=== PATIENT | female | born 1980 | race African-American/Black ===

== ENCOUNTER 2018-07-23 14:54 | Inpatient (IN) | payer BC ==
[2018-07-23] MEDS ORDERED: Carboprost Tromethamine 250 MCG/1 ML Amp IM PRN (15:57)
[2018-07-23] MEDS ORDERED: Sodium Chloride 0.9% 2.5 ML Syringe FLUSH PRN (15:57)
[2018-07-23] MEDS ORDERED: Nalbuphine 10 MG/1 ML Vial IVPUSH PRN (15:57)
[2018-07-23] MEDS ORDERED: Misoprostol 200 MCG Tab PO PRN (15:57)
[2018-07-23] MEDS ORDERED: Lidocaine 1% 50 ML MDV INJECT PRN (15:57)
[2018-07-23] MEDS ORDERED: Methylergonovine 0.2 MG/1 ML Amp IM PRN (15:57)
[2018-07-23] MEDS ORDERED: Tranexamic Acid 1,000 MG in Sodium Chloride 0.9% 100 ML IV PRN (15:57)
[2018-07-23] MEDS ORDERED: Sodium Chloride 0.9% 10 ML Syringe FLUSH PRN (15:57)
[2018-07-23] MEDS ORDERED: Water For Irrigation,Sterile 1,000 ML Container IRR PRN (15:57)
[2018-07-23] MEDS ORDERED: Terbutaline 1 MG/ML SDV SUBCUT PRN (15:58)
[2018-07-23] MEDS ORDERED: Oxytocin/0.9 % Sodium Chloride 30 UNIT/500 ML BAG IV SCH ×2 (16:00)
[2018-07-23] MEDS ORDERED: Dextrose 5%-0.9% NaCl 1,000 ML IV SCH (16:15)
[2018-07-23] MEDS: Lactated Ringers 1,000 ML IV SCH (16:48)
[2018-07-24] MEDS: Butorphanol 1 MG/ML SDV IVPUSH PRN ×2 (00:53→08:20)
[2018-07-24] MEDS: Lactated Ringers 1,000 ML IV SCH ×3 (08:59→11:00)
[2018-07-24] MEDS ORDERED: Ondansetron 4 MG/2 ML SDV IVPUSH PRN (09:05)
[2018-07-24] MEDS ORDERED: fentaNYL 100 MCG/2 ML SDV ONE (09:50)
[2018-07-24] MEDS ORDERED: Bupivacaine 0.25% 10 ML SDV ONE (09:51)
--- NOTE | 2018-07-24 10:40 | PCM48HPAN ---
Post Anesthesia Note - EVALUATION WITHIN 48HRS OF ANESTHETIC Vital Signs in Normal Range: Yes Patient Participated in Evaluation: Yes Respiratory Function Stable: Yes Airway Patent: Yes Cardiovascular Function Stable: Yes Hydration Status Stable: Yes Pain Control Satisfactory: Yes Nausea and Vomiting Control Satisfactory: Yes Mental Status Recovered: Yes - COMMENTS/OBSERVATIONS Free Text/Narrative:: pt comfortable at this time. no signs or symptoms of anesthesia related problems.
--- NOTE | 2018-07-24 10:46 | PCM.PREANE ---
Preanesthetic Assessment - Anesthesia/Transfusion/Family Hx Family History of Anesthesia Reaction: No - Review of Systems Gastrointestinal: No Symptoms Neurological: No Symptoms - Physical Assessment Height: 1.6 m Weight: 83.007 kg ASA Class: 2E Airway Class: Mallampati = 2 Cardiovascular: Regular Rate - Lab Values: Laboratory Last Values WBC 6.72 K/uL (4.0-11.0) 07/23/18 16:19 RBC 4.12 M/uL (4.30-5.90) L 07/23/18 16:19 Hgb 12.7 g/dL (12.0-16.0) 07/23/18 16:19 Hct 38.7 % (36.0-46.0) 07/23/18 16:19 MCV 93.9 fL (80.0-98.0) 07/23/18 16:19 MCH 30.8 pg (27.0-32.0) 07/23/18 16:19 MCHC 32.8 g/dL (31.0-37.0) 07/23/18 16:19 RDW Std Deviation 53.3 fl (28.0-62.0) 07/23/18 16:19 RDW Coeff of Katie 16 % (11.0-15.0) H 07/23/18 16:19 Plt Count 132 K/uL (150-400) L 07/23/18 16:19 MPV 12.40 fL (7.40-12.00) H 07/23/18 16:19 Nucleated RBC % 0.0 /100WBC 07/23/18 16:19 Nucleated RBCs # 0 K/uL 07/23/18 16:19 POC Glucose 68 mg/dL (60-110) 07/24/18 09:26 Membrane Rupture POSITIVE 07/24/18 07:15 Blood Type B POSITIVE 07/23/18 16:19 Antibody Screen NEGATIVE 07/23/18 16:19 - Allergies Allergies/Adverse Reactions: Allergies Allergy/AdvReac Type Severity Reaction Status Date / Time No Known Allergies Allergy Verified 07/23/18 15:56 - Acknowledgements Anesthesia Type Planned: Epidural Pt an Appropriate Candidate for the Planned Anesthesia: Yes Alternatives and Risks of Anesthesia Discussed w Pt/Guardian: Yes Pt/Guardian Understands and Agrees with Anesthesia Plan: Yes PreAnesthesia Questionnaire HEENT History: Reports: None Cardiovascular History: Reports: None Respiratory History: Reports: None Gastrointestinal History: Reports: None Genitourinary History: Reports: None [employer]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: Musculoskeletal History: Reports: None Neurological History: Reports: None Psychiatric History: Reports: None Endocrine/Metabolic History: Reports: None Hematologic History: Reports: None Immunologic History: Reports: None Oncologic (Cancer) History: Reports: None Dermatologic History: Reports: None - Infectious Disease History Infectious Disease History: Reports: None - Past Surgical History Head Surgeries/Procedures: Reports: None HEENT Surgical History: Reports: None Cardiovascular Surgical History: Reports: None Respiratory Surgical History: Reports: None GI Surgical History: Reports: None Female Surgical History: Reports: None Endocrine Surgical History: Reports: None Neurological Surgical History: Reports: None Musculoskeletal Surgical History: Reports: None Oncologic Surgical History: Reports: None Dermatological Surgical History: Reports: None - CURRENT (IN HOUSE) MEDS Current Meds: Current Medications Butorphanol Tartrate (Stadol) 1 mg IVPUSH Q1H PRN PRN Reason: Pain Last Admin: 07/24/18 08:20 Dose: 1 mg Carboprost Tromethamine (Hemabate Ds) 250 mcg IM ASDIRECTED PRN PRN Reason: Post Hemorrhage Lactated Ringer's (Ringers, Lactated) 1,000 mls @ 150 mls/hr IV ASDIRECTED MICKEY Last Admin: 07/24/18 09:52 Dose: 150 mls/hr Oxytocin/Sodium Chloride (Oxytocin 30 Unit/500 Ml-Ns) 30 unit in 500 mls @ 500 mls/hr IV TITRATE MICKEY Tranexamic Acid 1,000 mg/ (Sodium Chloride) 110 mls @ 660 mls/hr IV ONETIME PRN PRN Reason: Bleeding Oxytocin/Sodium Chloride (Oxytocin 30 Unit/500 Ml-Ns) 30 unit in 500 mls @ 2 mls/hr IV TITRATE MICKEY; Protocol Last Titration: 07/24/18 04:05 Dose: 16 munits/min, 16 mls/hr Dextrose/Sodium Chloride (Dextrose 5%-Normal Saline) 1,000 mls @ 100 mls/hr IV ASDIRECTED MICKEY Last Admin: 07/24/18 10:19 Dose: 100 mls/hr Insulin Human Regular 100 unit (/ Sodium Chloride) 100 mls @ 0.5 mls/hr IV TITRATE MICKEY; Protocol Lidocaine HCl (Xylocaine 1%) 50 ml INJECT ONETIME PRN PRN Reason: Laceration repair Methylergonovine Maleate (Methergine) 0.2 mg IM ASDIRECTED PRN PRN Reason: Post Hemorrhage Misoprostol (Cytotec) 200 mcg PO ONETIME PRN PRN Reason: Post Hemorrhage Nalbuphine HCl (Nubain) 10 mg IVPUSH Q1H PRN PRN Reason: Pain (severe 7-10) Ondansetron HCl (Zofran) 4 mg IVPUSH Q6H PRN PRN Reason: as needed for nausea Sodium Chloride (Saline Flush) 10 ml FLUSH ASDIRECTED PRN PRN Reason: Keep Vein Open Sodium Chloride (Saline Flush) 2.5 ml FLUSH ASDIRECTED PRN PRN Reason: Keep Vein Open Sterile Water (Sterile Water For Irrigation) 1,000 ml IRR ASDIRECTED PRN PRN Reason: delivery Terbutaline Sulfate (Brethine) 0.25 mg SUBCUT ASDIRECTED PRN PRN Reason: Tacysystole Discontinued Medications Bupivacaine HCl (Sensorcaine-Mpf 0.25%) Confirm Administered Dose 10 ml .ROUTE .STK-MED ONE Stop: 07/24/18 09:52 Fentanyl (Sublimaze) Confirm Administered Dose 100 mcg .ROUTE .STK-MED ONE Stop: 07/24/18 09:51 Fentanyl/Bupivacaine HCl (Mmkbcemx-Evaew-Hh 2 Mcg/Ml-0.125%) Confirm Administered Dose 100 mls @ as directed .ROUTE .STK-MED ONE Stop: 07/24/18 09:52
[2018-07-24] MEDS ORDERED: Lanolin 100% Cream 7 GM Tube TOP PRN (12:55)
[2018-07-24] MEDS ORDERED: Docusate Sodium 100 MG Cap PO PRN (12:55)
[2018-07-24] MEDS ORDERED: Acetaminophen 500 MG Tab PO PRN ×2 (12:55)
[2018-07-24] MEDS ORDERED: Benzocaine/Menthol 20%-0.5% Spray 78 GM Cannister TOP PRN (12:55)
[2018-07-24] MEDS ORDERED: Witch Hazel Medicated Pads 40/Jar TOP PRN (12:55)
[2018-07-24] MEDS ORDERED: Ibuprofen 400 MG Tab PO PRN (12:55)
[2018-07-24] MEDS ORDERED: Bisacodyl 10 MG Supp RECTAL PRN (12:55)
[2018-07-24] MEDS ORDERED: oxyCODONE 5 MG Tab PO PRN (12:55)
--- NOTE | 2018-07-24 13:01 | PCM.DEL ---
L & D Note - General Info Date of Service: 07/24/18 - Delivery Note Labor: Induced by Oxytocin Cervical Ripening Method: Balloon Device Delivery Outcome: Livebirth Infant Delivery Method: Spontaneous Vaginal Delivery-Single Infant Delivery Mode: Spontaneous Presentation: Vertex Nuchal Cord: Present, Reduced Anesthesia Type: Epidural Amniotic Fluid Description: Clear Episiotomy Type: None Laceration: None Placenta: Intact, Spontaneous Cord: 3 Vessels Estimated Blood Loss: 100 Resuscitation Needed: No Score 1 min: 9 Score 5 min: 9 Induction Criteria - Sorto Score Sorto Score Dilation: 1-2 cm Sorto Score Effacement: 40-50% Sorto Score 's Station: -3 Sorto Score Consistency: Firm Sorto Score Cervix Position: Midposition Sorto Score Total: 3 Sorto Score Presenting Part: Reports: Cephalic - Induction Gestational Age >/= 39 wks: Yes Medical Indication: GDMA 2- insulin dependent Estimated Pelvis: Reports: Adequate Reassuring Monitoring Strip: Yes Absence of Tachy Systole: Yes - General Info Date of Service: 07/24/18 - Patient Data Weight - Most Recent: 183 lb Lab Results Last 24 Hours: Laboratory Results - last 24 hr 07/23/18 07/23/18 07/23/18 Range/Units 16:05 16:19 16:19 WBC 6.72 (4.0-11.0) K/uL RBC 4.12 L (4.30-5.90) M/uL Hgb 12.7 (12.0-16.0) g/dL Hct 38.7 (36.0-46.0) % MCV 93.9 (80.0-98.0) fL MCH 30.8 (27.0-32.0) pg MCHC 32.8 (31.0-37.0) g/dL RDW Std Deviation 53.3 (28.0-62.0) fl RDW Coeff of Katie 16 H (11.0-15.0) % Plt Count 132 L (150-400) K/uL MPV 12.40 H (7.40-12.00) fL Nucleated RBC % 0.0 /100WBC Nucleated RBCs # 0 K/uL POC Glucose 56 L (60-110) mg/dL Membrane Rupture Blood Type B POSITIVE Antibody Screen NEGATIVE 07/23/18 07/23/18 07/23/18 Range/Units 18:17 21:19 23:50 WBC (4.0-11.0) K/uL RBC (4.30-5.90) M/uL Hgb (12.0-16.0) g/dL Hct (36.0-46.0) % MCV (80.0-98.0) fL MCH (27.0-32.0) pg MCHC (31.0-37.0) g/dL RDW Std Deviation (28.0-62.0) fl RDW Coeff of Katie (11.0-15.0) % Plt Count (150-400) K/uL MPV (7.40-12.00) fL Nucleated RBC % /100WBC Nucleated RBCs # K/uL POC Glucose 71 58 L 58 L (60-110) mg/dL Membrane Rupture Blood Type Antibody Screen 07/24/18 07/24/18 07/24/18 Range/Units 01:56 04:06 06:34 WBC (4.0-11.0) K/uL RBC (4.30-5.90) M/uL Hgb (12.0-16.0) g/dL Hct (36.0-46.0) % MCV (80.0-98.0) fL MCH (27.0-32.0) pg MCHC (31.0-37.0) g/dL RDW Std Deviation (28.0-62.0) fl RDW Coeff of Katie (11.0-15.0) % Plt Count (150-400) K/uL MPV (7.40-12.00) fL Nucleated RBC % /100WBC Nucleated RBCs # K/uL POC Glucose 63 51 L 56 L (60-110) mg/dL Membrane Rupture Blood Type Antibody Screen 07/24/18 07/24/18 07/24/18 Range/Units 07:15 07:59 09:26 WBC (4.0-11.0) K/uL RBC (4.30-5.90) M/uL Hgb (12.0-16.0) g/dL Hct (36.0-46.0) % MCV (80.0-98.0) fL MCH (27.0-32.0) pg MCHC (31.0-37.0) g/dL RDW Std Deviation (28.0-62.0) fl RDW Coeff of Katie (11.0-15.0) % Plt Count (150-400) K/uL MPV (7.40-12.00) fL Nucleated RBC % /100WBC Nucleated RBCs # K/uL POC Glucose 56 L 68 (60-110) mg/dL Membrane Rupture POSITIVE Blood Type Antibody Screen 07/24/18 07/24/18 Range/Units 10:43 11:56 WBC (4.0-11.0) K/uL RBC (4.30-5.90) M/uL Hgb (12.0-16.0) g/dL Hct (36.0-46.0) % MCV (80.0-98.0) fL MCH (27.0-32.0) pg MCHC (31.0-37.0) g/dL RDW Std Deviation (28.0-62.0) fl RDW Coeff of Katie (11.0-15.0) % Plt Count (150-400) K/uL MPV (7.40-12.00) fL Nucleated RBC % /100WBC Nucleated RBCs # K/uL POC Glucose 74 75 (60-110) mg/dL Membrane Rupture Blood Type Antibody Screen Med Orders - Current: Current Medications Discontinued Medications Bupivacaine HCl (Sensorcaine-Mpf 0.25%) Confirm Administered Dose 10 ml .ROUTE .STK-MED ONE Stop: 07/24/18 09:52 Butorphanol Tartrate (Stadol) 1 mg IVPUSH Q1H PRN PRN Reason: Pain Last Admin: 07/24/18 08:20 Dose: 1 mg Carboprost Tromethamine (Hemabate Ds) 250 mcg IM ASDIRECTED PRN PRN Reason: Post Hemorrhage Fentanyl (Sublimaze) Confirm Administered Dose 100 mcg .ROUTE .STK-MED ONE Stop: 07/24/18 09:51 Lactated Ringer's (Ringers, Lactated) 1,000 mls @ 150 mls/hr IV ASDIRECTED MICKEY Last Admin: 07/24/18 11:00 Dose: 150 mls/hr Oxytocin/Sodium Chloride (Oxytocin 30 Unit/500 Ml-Ns) 30 unit in 500 mls @ 500 mls/hr IV TITRATE MICKEY Last Admin: 07/24/18 12:46 Dose: 500 mls/hr Tranexamic Acid 1,000 mg/ (Sodium Chloride) 110 mls @ 660 mls/hr IV ONETIME PRN PRN Reason: Bleeding Oxytocin/Sodium Chloride (Oxytocin 30 Unit/500 Ml-Ns) 30 unit in 500 mls @ 2 mls/hr IV TITRATE MICKEY; Protocol Last Titration: 07/24/18 04:05 Dose: 16 munits/min, 16 mls/hr Dextrose/Sodium Chloride (Dextrose 5%-Normal Saline) 1,000 mls @ 100 mls/hr IV ASDIRECTED MICKEY Last Admin: 07/24/18 10:19 Dose: 100 mls/hr Insulin Human Regular 100 unit (/ Sodium Chloride) 100 mls @ 0.5 mls/hr IV TITRATE MICKEY; Protocol Fentanyl/Bupivacaine HCl (Uqfnczcz-Ogycb-Lt 2 Mcg/Ml-0.125%) Confirm Administered Dose 100 mls @ as directed .ROUTE .[facility]-MED ONE Stop: 07/24/18 09:52 Lidocaine HCl (Xylocaine 1%) 50 ml INJECT ONETIME PRN PRN Reason: Laceration repair Methylergonovine Maleate (Methergine) 0.2 mg IM ASDIRECTED PRN PRN Reason: Post Hemorrhage Misoprostol (Cytotec) 200 mcg PO ONETIME PRN PRN Reason: Post Hemorrhage Nalbuphine HCl (Nubain) 10 mg IVPUSH Q1H PRN PRN Reason: Pain (severe 7-10) Ondansetron HCl (Zofran) 4 mg IVPUSH Q6H PRN PRN Reason: as needed for nausea Sodium Chloride (Saline Flush) 10 ml FLUSH ASDIRECTED PRN PRN Reason: Keep Vein Open Sodium Chloride (Saline Flush) 2.5 ml FLUSH ASDIRECTED PRN PRN Reason: Keep Vein Open Sterile Water (Sterile Water For Irrigation) 1,000 ml IRR ASDIRECTED PRN PRN Reason: delivery Terbutaline Sulfate (Brethine) 0.25 mg SUBCUT ASDIRECTED PRN PRN Reason: Tacysystole - Problem List & Annotations (1) Vaginal delivery SNOMED Code(s): 232989051 Code(s): O80 - ENCOUNTER FOR FULL-TERM UNCOMPLICATED DELIVERY Status: Acute Current Visit: Yes (2) Gestational diabetes mellitus (GDM) requiring insulin SNOMED Code(s): 89632714, 086965539 Code(s): O24.414 - GESTATIONAL DIABETES IN , INSULIN CONTROLLED Status: Acute Current Visit: Yes - Problem List Review Problem List Initiated/Reviewed/Updated: Yes - My Orders Last 24 Hours: My Active Orders 07/23/18 15:57 May Shower [RC] ASDIRECTED Notify Provider [RC] PRN Vital Signs [RC] PER UNIT ROUTINE 07/23/18 15:58 Notify Provider [RC] PRN Notify Provider [RC] STAT Vital Signs [RC] PER UNIT ROUTINE 07/24/18 11:39 BLOOD GAS ARTERIAL UMBILICAL [BG] Routine BLOOD GAS VENOUS UMBILICAL [BG] Routine 07/24/18 12:55 Patient Status [ADT] Routine November Shower [RC] ASDIRECTED Up ad Thi [RC] ASDIRECTED Vital Signs [RC] PER UNIT ROUTINE Acetaminophen [Tylenol Extra Strength] 1,000 mg PO Q4H PRN Acetaminophen [Tylenol Extra Strength] 500 mg PO Q4H PRN Benzocaine/Menthol [Dermoplast Pain Relief 20%-0.5% [place]] 78 gm TOP ASDIRECTED PRN Bisacodyl [Dulcolax] 10 mg RECTAL ONETIME PRN Docusate Sodium [Colace] 100 mg PO BID PRN Ibuprofen [Motrin] 400 mg PO Q4H PRN Ibuprofen [Motrin] 800 mg PO Q6H PRN Lanolin [Lansinoh HPA] See Dose Instructions TOP ASDIRECTED PRN Witch Cassie [Tucks] 1 pad TOP ASDIRECTED PRN oxyCODONE 5 mg PO Q2H PRN Assess Lochia [WOMSER] Per Unit Routine Assess Uterine Involution [WOMSER] Per Unit Routine Breast Pump [WOMSER] Per Unit Routine Peripheral IV Discontinue [OM.PC] Routine Resuscitation Status Routine 07/24/18 12:56 Perineal Care [OM.PC] Per Unit Routine 07/24/18 Dinner Regular Diet [DIET] 07/25/18 05:11 HEMOGLOBIN/HEMATOCRIT,HH [HEME] Timed 07/25/18 06:00 Blood Glucose Check, Bedside [RC] ONETIME
--- NOTE | 2018-07-25 06:28 | OR ---
SURGEON: Nicolasa Crespo MD DATE OF PROCEDURE: 07/24/2018 PREOPERATIVE DIAGNOSES: 1. Term at 39 weeks and 5 days. 2. Gestational diabetes A2, insulin dependent. POSTOPERATIVE DIAGNOSES: 1. Term at 39 weeks and 5 days. 2. Gestational diabetes A2, insulin dependent. 3. Delivered. PROCEDURE: Induction of labor with spontaneous vaginal delivery. ANESTHESIA: Epidural. ESTIMATED BLOOD LOSS: 100 mL. COMPLICATIONS: None. DISPOSITION: Mother and baby are stable in Labor and Delivery room, bonding. FINDINGS: Female , weight 3510 g, scores of 9 and 9 at 1 and 5 minutes respectively. Grossly normal placenta with 3-vessel cord. BRIEF HISTORY: Meredith is a 37-year-old G5, P4-0-0-4 who was admitted overnight at 39 weeks and 4 days' gestation for induction of labor secondary to gestational diabetes type A2, which was adequately controlled on insulin. Her care was otherwise complicated by advanced maternal age with negative NIPT test. GBS negative. surveillance for gestational diabetes remained reassuring throughout the . A Cook intracervical balloon was inserted for mechanical cervical ripening and oxytocin was commenced and titrated as per protocol. She complained of leaking of fluid early this morning, and AmniSure was confirmed to be positive. Thereafter, when she was examined, she was 5 cm dilated, 80% effaced, and the intracervical balloon was removed at that time. Artificial rupture of the forebag was done and she subsequently received epidural for pain management. She progressed quite nicely, becoming fully dilated on just 6 milliunits of Pitocin and commenced active pushing. heart tracing was mainly category 1 and category 2 during the second stage of labor. DESCRIPTION OF PROCEDURE: She had a spontaneous vaginal delivery of a live female in direct occipital anterior position. There were loose nuchal cord x2, which was easily reduced. Amniotic fluid was clear at delivery. Anterior and posterior shoulders and the rest of the baby were delivered without difficulty. The baby was vigorous and cried spontaneously at . The baby was then delivered onto the maternal abdomen in attendance of the nursery nurse, who was evaluating and drying the baby. Delayed cord clamping was observed and the cord was subsequently cut by the father of the baby. With delivery of the infant, oxytocin infusion was converted to titration for active management of third stage of labor. Cord blood and gas samples were obtained. The placenta was then delivered spontaneously by controlled cord traction, appeared to be complete and intact. Examination of the perineum, vaginal wall, and the cervix revealed no lacerations. Uterine massage was performed. The uterus was found to be well contracted below the umbilicus. The patient tolerated the procedure well. Sponge, instrument, and needle counts were correct at the end of the delivery. Her blood sugar remained normal during the intrapartum period and she did not require any insulin drip for control. ADUMVIV / MODL /[id number] MTDD
[2018-07-25] MEDS: Ibuprofen 800 MG Tab PO PRN ×2 (07:22→16:26)
--- NOTE | 2018-07-25 08:04 | PCM.PNPP ---
<Lula Hui - Last Filed: 07/25/18 08:02> - General Info Date of Service: 07/25/18 Functional Status: Reports: Pain Controlled, Tolerating Diet, Ambulating, Urinating - Review of Systems General: Denies: Fever, Weakness, Fatigue Pulmonary: Denies: Shortness of Breath, Pleuritic Chest Pain, Cough Cardiovascular: Denies: Chest Pain, Palpitations, Dyspnea on Exertion Gastrointestinal: Denies: Abdominal Pain Genitourinary: Denies: Dysuria - General Info Date of Service: 07/25/18 - Patient Data Vital Signs - Most Recent: Last Vital Signs Temp 37.2 C 07/25/18 04:10 Pulse 96 07/25/18 04:10 Resp 16 07/25/18 04:10 BP 120/65 07/25/18 04:10 Pulse Ox 99 07/25/18 04:10 Weight - Most Recent: 183 lb Lab Results - Last 24 Hours: Laboratory Results - last 24 hr 07/24/18 07/24/18 07/24/18 Range/Units 09:26 10:43 11:38 Hgb (12.0-16.0) g/dL Hct (36.0-46.0) % Cord ABG pH 7.182 (7.18-7.38) Cord ABG Base Excess -8 (-10--2) Cord VBG pH 7.316 (7.25-7.45) Cord VBG Base Excess -5 (-10--2) POC Glucose 68 74 (60-110) mg/dL 07/24/18 07/25/18 Range/Units 11:56 05:39 Hgb 12.9 (12.0-16.0) g/dL Hct 39.0 (36.0-46.0) % Cord ABG pH (7.18-7.38) Cord ABG Base Excess (-10--2) Cord VBG pH (7.25-7.45) Cord VBG Base Excess (-10--2) POC Glucose 75 (60-110) mg/dL Med Orders - Current: Current Medications Acetaminophen (Tylenol Extra Strength) 500 mg PO Q4H PRN PRN Reason: Pain Last Admin: 07/24/18 15:37 Dose: 500 mg Acetaminophen (Tylenol Extra Strength) 1,000 mg PO Q4H PRN PRN Reason: Pain Last Admin: 07/24/18 23:40 Dose: 1,000 mg Benzocaine/Menthol (Dermoplast Pain Relief 20%-0.5% [place]) 78 gm TOP ASDIRECTED PRN PRN Reason: Perineal Comfort Measure Last Admin: 07/24/18 15:51 Dose: 78 gm Bisacodyl (Dulcolax) 10 mg RECTAL ONETIME PRN PRN Reason: Constipation Docusate Sodium (Colace) 100 mg PO BID PRN PRN Reason: Constipation Last Admin: 07/24/18 15:37 Dose: 100 mg Emollient Ointment (Lansinoh Hpa) 0 gm TOP ASDIRECTED PRN PRN Reason: Sore Nipples Last Admin: 07/24/18 15:38 Dose: 1 tube Ibuprofen (Motrin) 400 mg PO Q4H PRN PRN Reason: Pain Ibuprofen (Motrin) 800 mg PO Q6H PRN PRN Reason: Pain Last Admin: 07/25/18 07:22 Dose: 800 mg Oxycodone HCl (Oxycodone) 5 mg PO Q2H PRN PRN Reason: Pain Witch Cassie (Tucks) 1 pad TOP ASDIRECTED PRN PRN Reason: comfort care Last Admin: 07/24/18 15:51 Dose: 1 pad Discontinued Medications Bupivacaine HCl (Sensorcaine-Mpf 0.25%) Confirm Administered Dose 10 ml .ROUTE .STK-MED ONE Stop: 07/24/18 09:52 Last Admin: 07/25/18 07:48 Dose: Not Given Butorphanol Tartrate (Stadol) 1 mg IVPUSH Q1H PRN PRN Reason: Pain Last Admin: 07/24/18 08:20 Dose: 1 mg Carboprost Tromethamine (Hemabate Ds) 250 mcg IM ASDIRECTED PRN PRN Reason: Post Hemorrhage Fentanyl (Sublimaze) Confirm Administered Dose 100 mcg .ROUTE .STK-MED ONE Stop: 07/24/18 09:51 Last Admin: 07/25/18 07:47 Dose: Not Given Lactated Ringer's (Ringers, Lactated) 1,000 mls @ 150 mls/hr IV ASDIRECTED MICKEY Last Admin: 07/24/18 11:00 Dose: 150 mls/hr Oxytocin/Sodium Chloride (Oxytocin 30 Unit/500 Ml-Ns) 30 unit in 500 mls @ 500 mls/hr IV TITRATE MIC[facility] Last Admin: 07/24/18 12:46 Dose: 500 mls/hr Tranexamic Acid 1,000 mg/ (Sodium Chloride) 110 mls @ 660 mls/hr IV ONETIME PRN PRN Reason: Bleeding Oxytocin/Sodium Chloride (Oxytocin 30 Unit/500 Ml-Ns) 30 unit in 500 mls @ 2 mls/hr IV TITRATE MICKEY; Protocol Last Titration: 07/24/18 11:38 Dose: 999 munits/min, 999 mls/hr Dextrose/Sodium Chloride (Dextrose 5%-Normal Saline) 1,000 mls @ 100 mls/hr IV ASDIRECTED MICKEY Last Admin: 07/24/18 10:19 Dose: 100 mls/hr Insulin Human Regular 100 unit (/ Sodium Chloride) 100 mls @ 0.5 mls/hr IV TITRATE MICKEY; Protocol Fentanyl/Bupivacaine HCl (Gzmchlly-Ugzoz-Ir 2 Mcg/Ml-0.125%) Confirm Administered Dose 100 mls @ as directed .ROUTE .STK-MED ONE Stop: 07/24/18 09:52 Last Admin: 07/25/18 07:48 Dose: Not Given Lidocaine HCl (Xylocaine 1%) 50 ml INJECT ONETIME PRN PRN Reason: Laceration repair Methylergonovine Maleate (Methergine) 0.2 mg IM ASDIRECTED PRN PRN Reason: Post Hemorrhage Misoprostol (Cytotec) 200 mcg PO ONETIME PRN PRN Reason: Post Hemorrhage Nalbuphine HCl (Nubain) 10 mg IVPUSH Q1H PRN PRN Reason: Pain (severe 7-10) Ondansetron HCl (Zofran) 4 mg IVPUSH Q6H PRN PRN Reason: as needed for nausea Sodium Chloride (Saline Flush) 10 ml FLUSH ASDIRECTED PRN PRN Reason: Keep Vein Open Sodium Chloride (Saline Flush) 2.5 ml FLUSH ASDIRECTED PRN PRN Reason: Keep Vein Open Sterile Water (Sterile Water For Irrigation) 1,000 ml IRR ASDIRECTED PRN PRN Reason: delivery Terbutaline Sulfate (Brethine) 0.25 mg SUBCUT ASDIRECTED PRN PRN Reason: Tacysystole - Infant Interaction Infant Disposition, : in Room with Family Interaction: Holding Infant Infant Feeding: Breastfed ; Nursed Well Support Person: - Recovery Exam Fundal Tone: Firm Fundal Level: 1 Fingerbreadths Below Umbilicus Fundal Placement: Midline Lochia Amount: Scant Lochia Color: Rubra/Red Bladder Status: Voiding - Exam General: Alert, Oriented Neck: Supple Lungs: Clear to Auscultation, Normal Respiratory Effort Cardiovascular: Regular Rate, Regular Rhythm GI/Abdominal Exam: Normal Bowel Sounds, Soft, Non-Tender, No Distention, No Mass Extremities: Normal Range of Motion, Non-Tender, Normal Capillary Refill, Pedal Edema (trace) Skin: Warm, Dry, Intact - Problem List & Annotations (1) Vaginal delivery SNOMED Code(s): 424467468 Code(s): O80 - ENCOUNTER FOR FULL-TERM UNCOMPLICATED DELIVERY Status: Acute Current Visit: Yes - Problem List Review Problem List Initiated/Reviewed/Updated: Yes - Assessment Assessment:: PPD #1 s/p . Minimal pain and lochia. Breast feeding well. Discharge home today. - Plan Plan:: Discharge home today. Pelvic rest for 6 weeks. Can use OTC ibuprofen/Tylenol as needed for pain. Instructed patient to call if she develops fever greater than 101 or bleeding though a large pad an hour. F/U with [facility] in 6 weeks <Claribel Crespoian - Last Filed: 07/25/18 12:27> - Patient Data Vital Signs - Most Recent: Last Vital Signs Temp 36.8 C 07/25/18 08:00 Pulse 84 07/25/18 08:00 Resp 18 07/25/18 08:00 BP 120/73 07/25/18 08:00 Pulse Ox 98 07/25/18 08:00 Lab Results - Last 24 Hours: Laboratory Results - last 24 hr 07/24/18 07/25/18 Range/Units 11:38 05:39 Hgb 12.9 (12.0-16.0) g/dL Hct 39.0 (36.0-46.0) % Cord ABG pH 7.182 (7.18-7.38) Cord ABG Base Excess -8 (-10--2) Cord VBG pH 7.316 (7.25-7.45) Cord VBG Base Excess -5 (-10--2) Med Orders - Current: Current Medications Acetaminophen (Tylenol Extra Strength) 500 mg PO Q4H PRN PRN Reason: Pain Last Admin: 07/24/18 15:37 Dose: 500 mg Acetaminophen (Tylenol Extra Strength) 1,000 mg PO Q4H PRN PRN Reason: Pain Last Admin: 07/24/18 23:40 Dose: 1,000 mg Benzocaine/Menthol (Dermoplast Pain Relief 20%-0.5% [place]) 78 gm TOP ASDIRECTED PRN PRN Reason: Perineal Comfort Measure Last Admin: 07/24/18 15:51 Dose: 78 gm Bisacodyl (Dulcolax) 10 mg RECTAL ONETIME PRN PRN Reason: Constipation Docusate Sodium (Colace) 100 mg PO BID PRN PRN Reason: Constipation Last Admin: 07/24/18 15:37 Dose: 100 mg Emollient Ointment (Lansinoh Hpa) 0 gm TOP ASDIRECTED PRN PRN Reason: Sore Nipples Last Admin: 07/24/18 15:38 Dose: 1 tube Ibuprofen (Motrin) 400 mg PO Q4H PRN PRN Reason: Pain Ibuprofen (Motrin) 800 mg PO Q6H PRN PRN Reason: Pain Last Admin: 07/25/18 07:22 Dose: 800 mg Oxycodone HCl (Oxycodone) 5 mg PO Q2H PRN PRN Reason: Pain Witch Cassie (Tucks) 1 pad TOP ASDIRECTED PRN PRN Reason: comfort care Last Admin: 07/24/18 15:51 Dose: 1 pad Discontinued Medications Bupivacaine HCl (Sensorcaine-Mpf 0.25%) Confirm Administered Dose 10 ml .ROUTE .STK-MED ONE Stop: 07/24/18 09:52 Last Admin: 07/25/18 07:48 Dose: Not Given Butorphanol Tartrate (Stadol) 1 mg IVPUSH Q1H PRN PRN Reason: Pain Last Admin: 07/24/18 08:20 Dose: 1 mg Carboprost Tromethamine (Hemabate Ds) 250 mcg IM ASDIRECTED PRN PRN Reason: Post Hemorrhage Fentanyl (Sublimaze) Confirm Administered Dose 100 mcg .ROUTE .STK-MED ONE Stop: 07/24/18 09:51 Last Admin: 07/25/18 07:47 Dose: Not Given Lactated Ringer's (Ringers, Lactated) 1,000 mls @ 150 mls/hr IV ASDIRECTED MICKEY Last Admin: 07/24/18 11:00 Dose: 150 mls/hr Oxytocin/Sodium Chloride (Oxytocin 30 Unit/500 Ml-Ns) 30 unit in 500 mls @ 500 mls/hr IV TITRATE MICKEY Last Admin: 07/24/18 12:46 Dose: 500 mls/hr Tranexamic Acid 1,000 mg/ (Sodium Chloride) 110 mls @ 660 mls/hr IV ONETIME PRN PRN Reason: Bleeding Oxytocin/Sodium Chloride (Oxytocin 30 Unit/500 Ml-Ns) 30 unit in 500 mls @ 2 mls/hr IV TITRATE MICKEY; Protocol Last Titration: 07/24/18 11:38 Dose: 999 munits/min, 999 mls/hr Dextrose/Sodium Chloride (Dextrose 5%-Normal Saline) 1,000 mls @ 100 mls/hr IV ASDIRECTED MICKEY Last Admin: 07/24/18 10:19 Dose: 100 mls/hr Insulin Human Regular 100 unit (/ Sodium Chloride) 100 mls @ 0.5 mls/hr IV TITRATE MICKEY; Protocol Fentanyl/Bupivacaine HCl (Buhilgkc-Fqlym-Or 2 Mcg/Ml-0.125%) Confirm Administered Dose 100 mls @ as directed .ROUTE .STK-MED ONE Stop: 07/24/18 09:52 Last Admin: 07/25/18 07:48 Dose: Not Given Lidocaine HCl (Xylocaine 1%) 50 ml INJECT ONETIME PRN PRN Reason: Laceration repair Methylergonovine Maleate (Methergine) 0.2 mg IM ASDIRECTED PRN PRN Reason: Post Hemorrhage Misoprostol (Cytotec) 200 mcg PO ONETIME PRN PRN Reason: Post Hemorrhage Nalbuphine HCl (Nubain) 10 mg IVPUSH Q1H PRN PRN Reason: Pain (severe 7-10) Ondansetron HCl (Zofran) 4 mg IVPUSH Q6H PRN PRN Reason: as needed for nausea Sodium Chloride (Saline Flush) 10 ml FLUSH ASDIRECTED PRN PRN Reason: Keep Vein Open Sodium Chloride (Saline Flush) 2.5 ml FLUSH ASDIRECTED PRN PRN Reason: Keep Vein Open Sterile Water (Sterile Water For Irrigation) 1,000 ml IRR ASDIRECTED PRN PRN Reason: delivery Terbutaline Sulfate (Brethine) 0.25 mg SUBCUT ASDIRECTED PRN PRN Reason: Tacysystole - Problem List & Annotations (1) Vaginal delivery SNOMED Code(s): 962445676 Code(s): O80 - ENCOUNTER FOR FULL-TERM UNCOMPLICATED DELIVERY Status: Acute Current Visit: Yes (2) Gestational diabetes mellitus (GDM) requiring insulin SNOMED Code(s): 14703346, 277369714 Code(s): O24.414 - GESTATIONAL DIABETES IN , INSULIN CONTROLLED Status: Acute Current Visit: Yes - My Orders Last 24 Hours: My Active Orders 07/24/18 12:55 Patient Status [ADT] Routine May Shower [RC] ASDIRECTED Up ad Thi [RC] ASDIRECTED Vital Signs [RC] PER UNIT ROUTINE Acetaminophen [Tylenol Extra Strength] 1,000 mg PO Q4H PRN Acetaminophen [Tylenol Extra Strength] 500 mg PO Q4H PRN Benzocaine/Menthol [Dermoplast Pain Relief 20%-0.5% [place]] 78 gm TOP ASDIRECTED PRN Bisacodyl [Dulcolax] 10 mg RECTAL ONETIME PRN Docusate Sodium [Colace] 100 mg PO BID PRN Ibuprofen [Motrin] 400 mg PO Q4H PRN Ibuprofen [Motrin] 800 mg PO Q6H PRN Lanolin [Lansinoh HPA] See Dose Instructions TOP ASDIRECTED PRN Witch Cassie [Tucks] 1 pad TOP ASDIRECTED PRN oxyCODONE 5 mg PO Q2H PRN Assess Lochia [WOMSER] Per Unit Routine Assess Uterine Involution [WOMSER] Per Unit Routine Breast Pump [WOMSER] Per Unit Routine Peripheral IV Discontinue [OM.PC] Routine Resuscitation Status Routine 07/24/18 12:56 Perineal Care [OM.PC] Per Unit Routine 07/24/18 Dinner Regular Diet [DIET] 07/25/18 06:00 Blood Glucose Check, Bedside [RC] ONETIME - Assessment Assessment:: Patient seen and agree with above - Plan Plan:: Agree with above
[2018-07-26] MEDS: Ibuprofen 800 MG Tab PO PRN (04:07)
--- NOTE | 2018-07-26 08:10 | PCM.PNPP ---
<Lula Hui - Last Filed: 07/26/18 08:09> - General Info Date of Service: 07/26/18 Functional Status: Reports: Pain Controlled, Tolerating Diet, Ambulating, Urinating - Review of Systems General: Denies: Fever, Weakness, Fatigue Pulmonary: Denies: Shortness of Breath, Pleuritic Chest Pain, Cough Cardiovascular: Denies: Chest Pain, Palpitations, Dyspnea on Exertion Gastrointestinal: Denies: Abdominal Pain Genitourinary: Denies: Dysuria - General Info Date of Service: 07/26/18 - Patient Data Vital Signs - Most Recent: Last Vital Signs Temp 36.7 C 07/26/18 04:00 Pulse 86 07/26/18 04:00 Resp 16 07/26/18 04:00 BP 111/67 07/26/18 04:00 Pulse Ox 98 07/26/18 04:00 Weight - Most Recent: 183 lb Lab Results - Last 24 Hours: Laboratory Results - last 24 hr 07/25/18 Range/Units 05:08 POC Glucose 90 (60-110) mg/dL Med Orders - Current: Current Medications Acetaminophen (Tylenol Extra Strength) 500 mg PO Q4H PRN PRN Reason: Pain Last Admin: 07/24/18 15:37 Dose: 500 mg Acetaminophen (Tylenol Extra Strength) 1,000 mg PO Q4H PRN PRN Reason: Pain Last Admin: 07/24/18 23:40 Dose: 1,000 mg Benzocaine/Menthol (Dermoplast Pain Relief 20%-0.5% [place]) 78 gm TOP ASDIRECTED PRN PRN Reason: Perineal Comfort Measure Last Admin: 07/24/18 15:51 Dose: 78 gm Bisacodyl (Dulcolax) 10 mg RECTAL ONETIME PRN PRN Reason: Constipation Docusate Sodium (Colace) 100 mg PO BID PRN PRN Reason: Constipation Last Admin: 07/24/18 15:37 Dose: 100 mg Emollient Ointment (Lansinoh Hpa) 0 gm TOP ASDIRECTED PRN PRN Reason: Sore Nipples Last Admin: 07/24/18 15:38 Dose: 1 tube Ibuprofen (Motrin) 400 mg PO Q4H PRN PRN Reason: Pain Ibuprofen (Motrin) 800 mg PO Q6H PRN PRN Reason: Pain Last Admin: 07/26/18 04:07 Dose: 800 mg Oxycodone HCl (Oxycodone) 5 mg PO Q2H PRN PRN Reason: Pain Witch Cassie (Tucks) 1 pad TOP ASDIRECTED PRN PRN Reason: comfort care Last Admin: 07/24/18 15:51 Dose: 1 pad Discontinued Medications Bupivacaine HCl (Sensorcaine-Mpf 0.25%) Confirm Administered Dose 10 ml .ROUTE .[employer] ONE Stop: 07/24/18 09:52 Last Admin: 07/25/18 07:48 Dose: Not Given Butorphanol Tartrate (Stadol) 1 mg IVPUSH Q1H PRN PRN Reason: Pain Last Admin: 07/24/18 08:20 Dose: 1 mg Carboprost Tromethamine (Hemabate Ds) 250 mcg IM ASDIRECTED PRN PRN Reason: Post Hemorrhage Fentanyl (Sublimaze) Confirm Administered Dose 100 mcg .ROUTE .[employer] ONE Stop: 07/24/18 09:51 Last Admin: 07/25/18 07:47 Dose: Not Given Lactated Ringer's (Ringers, Lactated) 1,000 mls @ 150 mls/hr IV ASDIRECTED MICKEY Last Admin: 07/24/18 11:00 Dose: 150 mls/hr Oxytocin/Sodium Chloride (Oxytocin 30 Unit/500 Ml-Ns) 30 unit in 500 mls @ 500 mls/hr IV TITRATE MICKEY Last Admin: 07/24/18 12:46 Dose: 500 mls/hr Tranexamic Acid 1,000 mg/ (Sodium Chloride) 110 mls @ 660 mls/hr IV ONETIME PRN PRN Reason: Bleeding Oxytocin/Sodium Chloride (Oxytocin 30 Unit/500 Ml-Ns) 30 unit in 500 mls @ 2 mls/hr IV TITRATE MICKEY; Protocol Last Titration: 07/24/18 11:38 Dose: 999 munits/min, 999 mls/hr Dextrose/Sodium Chloride (Dextrose 5%-Normal Saline) 1,000 mls @ 100 mls/hr IV ASDIRECTED MICKEY Last Admin: 07/24/18 10:19 Dose: 100 mls/hr Insulin Human Regular 100 unit (/ Sodium Chloride) 100 mls @ 0.5 mls/hr IV TITRATE MICKEY; Protocol Fentanyl/Bupivacaine HCl (Skpqomwv-Hbmrq-Yf 2 Mcg/Ml-0.125%) Confirm Administered Dose 100 mls @ as directed .ROUTE .STK-MED ONE Stop: 07/24/18 09:52 Last Admin: 07/25/18 07:48 Dose: Not Given Lidocaine HCl (Xylocaine 1%) 50 ml INJECT ONETIME PRN PRN Reason: Laceration repair Methylergonovine Maleate (Methergine) 0.2 mg IM ASDIRECTED PRN PRN Reason: Post Hemorrhage Misoprostol (Cytotec) 200 mcg PO ONETIME PRN PRN Reason: Post Hemorrhage Nalbuphine HCl (Nubain) 10 mg IVPUSH Q1H PRN PRN Reason: Pain (severe 7-10) Ondansetron HCl (Zofran) 4 mg IVPUSH Q6H PRN PRN Reason: as needed for nausea Sodium Chloride (Saline Flush) 10 ml FLUSH ASDIRECTED PRN PRN Reason: Keep Vein Open Sodium Chloride (Saline Flush) 2.5 ml FLUSH ASDIRECTED PRN PRN Reason: Keep Vein Open Sterile Water (Sterile Water For Irrigation) 1,000 ml IRR ASDIRECTED PRN PRN Reason: delivery Terbutaline Sulfate (Brethine) 0.25 mg SUBCUT ASDIRECTED PRN PRN Reason: Tacysystole - Infant Interaction Disposition, : [place] in Room with Family Interaction: Holding Infant Feeding: Breastfed Infant; Nursed Well Support Person: - Recovery Exam Fundal Tone: Firm Fundal Level: 1 Fingerbreadths Below Umbilicus Fundal Placement: Midline Lochia Amount: Scant Lochia Color: Rubra/Red Perineum Description: Intact, Minimal Bruising/Swelling Episiotomy/Laceration: None Bladder Status: Voiding - Exam Neck: Supple Lungs: Clear to Auscultation, Normal Respiratory Effort Cardiovascular: Regular Rate, Regular Rhythm GI/Abdominal Exam: Normal Bowel Sounds, Soft, Non-Tender, No Distention, No Mass Extremities: Normal Inspection, Non-Tender, Normal Capillary Refill, Pedal Edema (trace) Skin: Warm, Dry, Intact - Problem List & Annotations (1) Vaginal delivery SNOMED Code(s): 445369991 Code(s): O80 - ENCOUNTER FOR FULL-TERM UNCOMPLICATED DELIVERY Status: Acute Current Visit: Yes - Problem List Review Problem List Initiated/Reviewed/Updated: Yes - My Orders Last 24 Hours: My Active Orders 07/25/18 08:11 Ready for Discharge [RC] PER UNIT ROUTINE - Assessment Assessment:: PPD #2 s/p minimal pain and lochia, breast feeding well. Discharge home today. - Plan Plan:: Discharge home today. Pelvic rest for 6 weeks. Can use OTC ibuprofen/Tylenol as needed for pain. Instructed patient to call if she develops fever greater than 101 or bleeding though a large pad an hour. F/U with [facility] in 6 weeks <Nicolasa Crespo - Last Filed: 07/26/18 10:13> - Patient Data Vital Signs - Most Recent: Last Vital Signs Temp 36.8 C 07/26/18 08:10 Pulse 85 07/26/18 08:10 Resp 17 07/26/18 08:10 BP 138/84 07/26/18 08:10 Pulse Ox 99 07/26/18 08:10 Lab Results - Last 24 Hours: Laboratory Results - last 24 hr 07/25/18 Range/Units 05:08 POC Glucose 90 (60-110) mg/dL Med Orders - Current: Current Medications Acetaminophen (Tylenol Extra Strength) 500 mg PO Q4H PRN PRN Reason: Pain Last Admin: 07/24/18 15:37 Dose: 500 mg Acetaminophen (Tylenol Extra Strength) 1,000 mg PO Q4H PRN PRN Reason: Pain Last Admin: 07/24/18 23:40 Dose: 1,000 mg Benzocaine/Menthol (Dermoplast Pain Relief 20%-0.5% [place]) 78 gm TOP ASDIRECTED PRN PRN Reason: Perineal Comfort Measure Last Admin: 07/24/18 15:51 Dose: 78 gm Bisacodyl (Dulcolax) 10 mg RECTAL ONETIME PRN PRN Reason: Constipation Docusate Sodium (Colace) 100 mg PO BID PRN PRN Reason: Constipation Last Admin: 07/24/18 15:37 Dose: 100 mg Emollient Ointment (Lansinoh Hpa) 0 gm TOP ASDIRECTED PRN PRN Reason: Sore Nipples Last Admin: 07/24/18 15:38 Dose: 1 tube Ibuprofen (Motrin) 400 mg PO Q4H PRN PRN Reason: Pain Ibuprofen (Motrin) 800 mg PO Q6H PRN PRN Reason: Pain Last Admin: 07/26/18 04:07 Dose: 800 mg Oxycodone HCl (Oxycodone) 5 mg PO Q2H PRN PRN Reason: Pain Witch Cassie (Tucks) 1 pad TOP ASDIRECTED PRN PRN Reason: comfort care Last Admin: 07/24/18 15:51 Dose: 1 pad Discontinued Medications Bupivacaine HCl (Sensorcaine-Mpf 0.25%) Confirm Administered Dose 10 ml .ROUTE .[facility] ONE Stop: 07/24/18 09:52 Last Admin: 07/25/18 07:48 Dose: Not Given Butorphanol Tartrate (Stadol) 1 mg IVPUSH Q1H PRN PRN Reason: Pain Last Admin: 07/24/18 08:20 Dose: 1 mg Carboprost Tromethamine (Hemabate Ds) 250 mcg IM ASDIRECTED PRN PRN Reason: Post Hemorrhage Fentanyl (Sublimaze) Confirm Administered Dose 100 mcg .ROUTE .[employer] ONE Stop: 07/24/18 09:51 Last Admin: 07/25/18 07:47 Dose: Not Given Lactated Ringer's (Ringers, Lactated) 1,000 mls @ 150 mls/hr IV ASDIRECTED [facility] Last Admin: 07/24/18 11:00 Dose: 150 mls/hr Oxytocin/Sodium Chloride (Oxytocin 30 Unit/500 Ml-Ns) 30 unit in 500 mls @ 500 mls/hr IV TITRATE [facility] Last Admin: 07/24/18 12:46 Dose: 500 mls/hr Tranexamic Acid 1,000 mg/ (Sodium Chloride) 110 mls @ 660 mls/hr IV ONETIME PRN PRN Reason: Bleeding Oxytocin/Sodium Chloride (Oxytocin 30 Unit/500 Ml-Ns) 30 unit in 500 mls @ 2 mls/hr IV TITRATE [facility]; Protocol Last Titration: 07/24/18 11:38 Dose: 999 munits/min, 999 mls/hr Dextrose/Sodium Chloride (Dextrose 5%-Normal Saline) 1,000 mls @ 100 mls/hr IV ASDIRECTED [facility] Last Admin: 07/24/18 10:19 Dose: 100 mls/hr Insulin Human Regular 100 unit (/ Sodium Chloride) 100 mls @ 0.5 mls/hr IV TITRATE MICKEY; Protocol Fentanyl/Bupivacaine HCl (Hhasxbgo-Vauoi-It 2 Mcg/Ml-0.125%) Confirm Administered Dose 100 mls @ as directed .ROUTE .STK-MED ONE Stop: 07/24/18 09:52 Last Admin: 07/25/18 07:48 Dose: Not Given Lidocaine HCl (Xylocaine 1%) 50 ml INJECT ONETIME PRN PRN Reason: Laceration repair Methylergonovine Maleate (Methergine) 0.2 mg IM ASDIRECTED PRN PRN Reason: Post Hemorrhage Misoprostol (Cytotec) 200 mcg PO ONETIME PRN PRN Reason: Post Hemorrhage Nalbuphine HCl (Nubain) 10 mg IVPUSH Q1H PRN PRN Reason: Pain (severe 7-10) Ondansetron HCl (Zofran) 4 mg IVPUSH Q6H PRN PRN Reason: as needed for nausea Sodium Chloride (Saline Flush) 10 ml FLUSH ASDIRECTED PRN PRN Reason: Keep Vein Open Sodium Chloride (Saline Flush) 2.5 ml FLUSH ASDIRECTED PRN PRN Reason: Keep Vein Open Sterile Water (Sterile Water For Irrigation) 1,000 ml IRR ASDIRECTED PRN PRN Reason: delivery Terbutaline Sulfate (Brethine) 0.25 mg SUBCUT ASDIRECTED PRN PRN Reason: Tacysystole - Problem List & Annotations (1) Vaginal delivery SNOMED Code(s): 710344010 Code(s): O80 - ENCOUNTER FOR FULL-TERM UNCOMPLICATED DELIVERY Status: Acute Current Visit: Yes (2) Gestational diabetes mellitus (GDM) requiring insulin SNOMED Code(s): 83797987, 530216863 Code(s): O24.414 - GESTATIONAL DIABETES IN , INSULIN CONTROLLED Status: Acute Current Visit: Yes - Plan Plan:: Patient seen and evaluated independently, agree with above assessment and plan
== END 2018-07-26 10:25 | disposition home or self-care (01) | DRG 560 ==
LOC: MW.OBCHECK 14:54 → MW.OB 14:57 → OBSVTOIN 07-24 11:38
PROVIDERS: ADMIT Obstetrics & Gynecology; ATTEND Obstetrics & Gynecology
PROC: 10E0XZZ Delivery of Products of Conception, External Approach (ICD-10-PCS; principal; 2018-07-24)
PROC: 3E033VJ Introduction of Other Hormone into Peripheral Vein, Percutaneous Approach (ICD-10-PCS; 2018-07-24)
PROC: 0U7C7ZZ Dilation of Cervix, Via Natural or Artificial Opening (ICD-10-PCS; 2018-07-24)
PROC: 10907ZC Drainage of Amniotic Fluid, Therapeutic from Products of Conception, Via Natural or Artificial Opening (ICD-10-PCS; 2018-07-24)
PROC: 6A550ZT Pheresis of Cord Blood Stem Cells, Single (ICD-10-PCS; 2018-07-24)
PROC: 00HU33Z Insertion of Infusion Device into Spinal Canal, Percutaneous Approach (ICD-10-PCS; 2018-07-24)
DX: O24.424 Gestational diabetes mellitus in childbirth, insulin controlled (principal); O69.81X0 Labor and delivery complicated by cord around neck, without compression, not applicable or unspecified; Z3A.39 39 weeks gestation of pregnancy; Z37.0 Single live birth
CPT/HCPCS: 36415; 59025; 59200; 59409; 82803; 82962; 84112; 85014; 85018; 85027; 86850; 86900; 86901; A9270-GY; J0595; J1815-GY; J2590; J7030; J7042; J7120

== ENCOUNTER 2020-07-18 16:58 | Inpatient (IN) | payer SELFPAY ==
[2020-07-19] MEDS ORDERED: Nalbuphine 10 MG/1 ML Vial IVPUSH PRN (00:37)
[2020-07-19] MEDS ORDERED: Tranexamic Acid 1,000 MG in Sodium Chloride 0.9% 100 ML IV PRN (00:37)
[2020-07-19] MEDS ORDERED: Methylergonovine 0.2 MG/1 ML Amp IM PRN (00:37)
[2020-07-19] MEDS ORDERED: Lidocaine 1% 50 ML MDV INJECT PRN (00:37)
[2020-07-19] MEDS ORDERED: Butorphanol 1 MG/ML SDV IVPUSH PRN (00:37)
[2020-07-19] MEDS ORDERED: Carboprost Tromethamine 250 MCG/1 ML Amp IM PRN (00:37)
[2020-07-19] MEDS ORDERED: Sodium Chloride 0.9% 10 ML Syringe FLUSH PRN (00:37)
[2020-07-19] MEDS ORDERED: Misoprostol 200 MCG Tab PO PRN (00:37)
[2020-07-19] MEDS ORDERED: Sodium Chloride 0.9% 10 ML SDV IV PRN (00:37)
[2020-07-19] MEDS ORDERED: Sodium Chloride 0.9% 2.5 ML Syringe FLUSH PRN (00:37)
[2020-07-19] MEDS ORDERED: Water For Irrigation,Sterile 1,000 ML Container IRR PRN (00:37)
[2020-07-19] MEDS ORDERED: Terbutaline 1 MG/ML SDV SUBCUT PRN (00:40)
[2020-07-19] MEDS ORDERED: Ondansetron 4 MG/2 ML SDV IVPUSH PRN (00:43)
[2020-07-19] MEDS ORDERED: Oxytocin/0.9 % Sodium Chloride 30 UNIT/500 ML BAG IV SCH ×2 (00:45)
[2020-07-19] MEDS ORDERED: Lactated Ringers 1,000 ML IV SCH (00:45)
[2020-07-19] MEDS: Misoprostol 25 MCG (1/4 of 100 MCG) Tab VAG PRN ×2 (01:06→05:39)
[2020-07-19] MEDS: Misoprostol 25 MCG (1/4 of 100 MCG) Tab PO PRN ×2 (01:09→05:41)
--- NOTE | 2020-07-19 07:49 | PCM.LDHP ---
L&D History of Present Illness - General Date of Service: 07/19/20 Admit Problem/Dx: Patient Status Order with Admit Dx/Problem 07/19/20 00:05 Patient Status [ADT] Routine Admission Diagnosis/Problem Admission Diagnosis/Problem 07/19/20 07:40 Meredith is a 39 yo at 38+4 weeks gestation (ARLETTE 07/29/2022) that presents to L&D today for IOL due to CDM, AMA. Reports adequate movement. Denies vika vaginal bleeding, significant pain at this time. B pos, RI, GBS neg. EFW at 36-week TAUS 2082 g (4 lb 9 oz), 30th%ile, vertex. FHR 135, + accels, - decels. Contractions every 2-4 minutes, 60-90 seconds, mild, palpates soft. Pertinent medical history includes: CDM, AMA, grand multiparity. NKDA. Medications: PNV, metformin 1000 mg BID. Patient has no other complaints or c oncerns at this time. Source of Information: Patient History Limitations: Reports: No Limitations - History of Present Illness Improves with: Reports: None Worsens with: Reports: None Associated Symptoms: Reports: N - Related Data Allergies/Adverse Reactions: Allergies Allergy/AdvReac Type Severity Reaction Status Date / Time No Known Allergies Allergy Verified 07/19/20 00:34 Home Medications: Home Meds metFORMIN [Glucophage] 1,000 tab PO BID 06/24/20 [History] Pnv No.95/Ferrous Fum/Folic AC [ Tablet] 1 tab PO DAILY 07/19/20 [History] Past Medical History HEENT History: Reports: None Cardiovascular History: Reports: None Respiratory History: Reports: None Gastrointestinal History: Reports: None Genitourinary History: Reports: None 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: : 6 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: 5 LMP (Approximate): Musculoskeletal History: Reports: None Neurological History: Reports: None Psychiatric History: Reports: None Endocrine/Metabolic History: Reports: Diabetes, Gestational Hematologic History: Reports: None Immunologic History: Reports: None Oncologic (Cancer) History: Reports: None Dermatologic History: Reports: None - Infectious Disease History Infectious Disease History: Reports: None - Past Surgical History Head Surgeries/Procedures: Reports: None HEENT Surgical History: Reports: None Cardiovascular Surgical History: Reports: None Respiratory Surgical History: Reports: None GI Surgical History: Reports: None Female Surgical History: Reports: None Endocrine Surgical History: Reports: None Neurological Surgical History: Reports: None Musculoskeletal Surgical History: Reports: None Oncologic Surgical History: Reports: None Dermatological Surgical History: Reports: None Social & Family History - Family History HEENT: Reports: None Cardiac: Reports: Hypertension Respiratory: Reports: None GI: Reports: None : Reports: None OBGYN: Reports: Musculoskeletal: Reports: None Neurological: Reports: None Psychiatric: Reports: None Endocrine/Metabolic: Reports: Diabetes, type II Hematologic: Reports: None Immunologic: Reports: None Dermatologic: Reports: None Oncologic: Reports: None - Tobacco Use Tobacco Use Status *Q: Never Tobacco User - Caffeine Use Caffeine Use: Reports: Tea - Alcohol Use Alcohol Use History: No - Recreational Drug Use Recreational Drug Use: No H&P Review of Systems - Review of Systems: Review Of Systems: Comprehensive ROS is negative, except as noted in HPI. General: Reports: No Symptoms HEENT: Reports: No Symptoms Pulmonary: Reports: No Symptoms Cardiovascular: Reports: No Symptoms Gastrointestinal: Reports: No Symptoms Genitourinary: Reports: No Symptoms Musculoskeletal: Reports: No Symptoms Skin: Reports: No Symptoms Psychiatric: Reports: No Symptoms Neurological: Reports: No Symptoms Hematologic/Lymphatic: Reports: No Symptoms Immunologic: Reports: No Symptoms L&D Exam - Exam Exam: See Below - Vital Signs Vital Signs: T 98.6, HR 89, BP 121/75 Weight: 171 lb 9.6 oz - OB Specific Fundal Height In cm: 36 Contraction Duration (sec): 60-90 Contraction Frequency (min): 2-3 Contraction Intensity: Mild Movement: Active Heart Tones: Present Heart Tones per Min: 135 Heart Rate (FHR) Variability: Moderate (6-25 bmp) Presentation: Vertex (Via TAUS at bedside) - Sorto Score Sorto Score Cervix Position: Midposition Sorto Score Consistency: Firm Sorto Score Effacement: 31-50% Sorto Score Dilation: 1-2 cm Sorto Score 's Station: -3 Sorto Score Total: 3 - Exam General: Alert, Oriented, Cooperative HEENT: Conjunctiva Clear, Hearing Intact, Mucosa Moist & [place], PERRLA Neck: Supple, Trachea Midline Lungs: Clear to Auscultation, Normal Respiratory Effort Cardiovascular: Regular Rate, Regular Rhythm GI/Abdominal Exam: Normal Bowel Sounds, Soft, Non-Tender, No Organomegaly, No Distention Rectal Exam: Deferred Genitourinary: Normal external exam, Enlarged uterus (Gravid uterus) Back Exam: Normal Inspection, Full Range of Motion Extremities: Normal Inspection, Normal Range of Motion, Non-Tender, No Pedal Edema, Normal Capillary Refill Skin: Warm, Dry, Intact Neurological: Cranial Nerves Intact, Reflexes Equal Bilateral Psychiatric: Alert, Normal Affect, Normal Mood - Patient Data Lab Results Last 24 hrs: Laboratory Results - last 24 hr 07/19/20 07/19/20 07/19/20 Range/Units 00:20 00:20 00:26 WBC 5.58 (4.0-11.0) K/uL RBC 3.57 L (4.30-5.90) M/uL Hgb 11.2 L (12.0-16.0) g/dL Hct 33.7 L (36.0-46.0) % MCV 94.4 (80.0-98.0) fL MCH 31.4 (27.0-32.0) pg MCHC 33.2 (31.0-37.0) g/dL RDW Std Deviation 50.2 (28.0-62.0) fl RDW Coeff of Katie 16 H (11.0-15.0) % Plt Count 154 (150-400) K/uL MPV 11.50 (7.40-12.00) fL POC Glucose (60-110) mg/dL SARS-CoV-2 RNA (PORSHA) NEGATIVE (NEGATIVE) Blood Type B POSITIVE Antibody Screen NEGATIVE 07/19/20 Range/Units 06:24 WBC (4.0-11.0) K/uL RBC (4.30-5.90) M/uL Hgb (12.0-16.0) g/dL Hct (36.0-46.0) % MCV (80.0-98.0) fL MCH (27.0-32.0) pg MCHC (31.0-37.0) g/dL RDW Std Deviation (28.0-62.0) fl RDW Coeff of Katie (11.0-15.0) % Plt Count (150-400) K/uL MPV (7.40-12.00) fL POC Glucose 86 (60-110) mg/dL SARS-CoV-2 RNA (PORSHA) (NEGATIVE) Blood Type Antibody Screen Result Diagrams: 07/19/20 00:20 - Problem List (1) Encounter for induction of labor SNOMED Code(s): 208338589 ICD Code: Z34.90 - ENCNTR FOR SUPRVSN OF NORMAL , UNSP, UNSP TRIMESTER Status: Acute Priority: High Current Visit: Yes (2) Diabetes mellitus affecting in third trimester SNOMED Code(s): 21929326, 97861419 ICD Code: O24.913 - UNSPECIFIED DIABETES MELLITUS IN , THIRD TRIMESTER Status: Acute Priority: High Current Visit: Yes (3) Advanced maternal age (AMA) in SNOMED Code(s): 690958263 ICD Code: AET2642 - Status: Acute Priority: High Current Visit: Yes Problem List Initiated/Reviewed/Updated: Yes Orders Last 24hrs: Active Orders 24 hr Category Date Time Status Patient Status [ADT] Routine ADT 07/19/20 00:05 Active Bedrest Bathroom Privileges [RC] ASDIRECTED Care 07/19/20 00:40 Active Blood Glucose Check, Bedside [RC] Q4HR Care 07/19/20 06:20 Active Communication Order [RC] ASDIRECTED Care 07/19/20 00:40 Active Communication Order [RC] ASDIRECTED Care 07/19/20 00:40 Active Communication Order [RC] ASDIRECTED Care 07/19/20 00:40 Active Heart Tones [RC] CONTINUOUS Care 07/19/20 00:37 Active Non Stress Test [RC] PER UNIT ROUTINE Care 07/19/20 00:37 Active May Shower [RC] ASDIRECTED Care 07/19/20 00:37 Active Notify Provider [RC] PRN Care 07/19/20 00:37 Active Notify Provider [RC] PRN Care 07/19/20 00:40 Active Notify Provider [RC] PRN Care 07/19/20 00:40 Active Notify Provider [RC] STAT Care 07/19/20 00:40 Active Oxygen Therapy [RC] ASDIRECTED Care 07/19/20 00:40 Active Up ad Thi [RC] ASDIRECTED Care 07/19/20 00:37 Active Vaginal Exam [RC] PRN Care 07/19/20 00:37 Active Vaginal Exam [RC] PRN Care 07/19/20 00:40 Active Vital Signs [RC] PER UNIT ROUTINE Care 07/19/20 00:37 Active Vital Signs [RC] PER UNIT ROUTINE Care 07/19/20 00:40 Active RPR (SYPHILIS SERO) W/ RFLX [REF] Routine Lab 07/19/20 00:20 Received Butorphanol [Stadol] Med 07/19/20 00:37 Active 1 mg IVPUSH Q1H PRN Carboprost Tromethamine [Hemabate DS] Med 07/19/20 00:37 Active 250 mcg IM ASDIRECTED PRN Lactated Ringers [Ringers, Lactated] 1,000 ml Med 07/19/20 00:45 Active IV ASDIRECTED Lidocaine 1% [Xylocaine 1%] Med 07/19/20 00:37 Active 50 ml INJECT ONETIME PRN Methylergonovine [Methergine] Med 07/19/20 00:37 Active 0.2 mg IM ASDIRECTED PRN Nalbuphine [Nubain] Med 07/19/20 00:37 Active 10 mg IVPUSH Q1H PRN Ondansetron [Zofran] Med 07/19/20 00:43 Active 4 mg IVPUSH Q6H PRN Oxytocin/0.9 % Sodium Chloride [Oxytocin 30 Unit/500 ML Med 07/19/20 00:45 Active -NS] 30 unit in 500 ml IV TITRATE Oxytocin/0.9 % Sodium Chloride [Oxytocin 30 Unit/500 ML Med 07/19/20 00:45 Active -NS] 30 unit in 500 ml IV TITRATE Sodium Chloride 0.9% [Normal Saline] Med 07/19/20 00:37 Active 10 ml IV ASDIRECTED PRN Sodium Chloride 0.9% [Saline Flush] Med 07/19/20 00:37 Active 10 ml FLUSH ASDIRECTED PRN Sodium Chloride 0.9% [Saline Flush] Med 07/19/20 00:37 Active 2.5 ml FLUSH ASDIRECTED PRN Terbutaline [Brethine] Med 07/19/20 00:40 Active 0.25 mg SUBCUT ASDIRECTED PRN Tranexamic Acid [Cyklokapron] 1,000 mg Med 07/19/20 00:37 Active Sodium Chloride 0.9% [Normal Saline] 100 ml IV ONETIME Water For Irrigation,Sterile [Sterile Water for Med 07/19/20 00:37 Active Irrigation] 1,000 ml IRR ASDIRECTED PRN miSOPROStoL [Cytotec] Med 07/19/20 00:37 Active 200 mcg PO ONETIME PRN miSOPROStoL [Cytotec] Med 07/19/20 00:40 Active 25 mcg PO Q4H PRN miSOPROStoL [Cytotec] Med 07/19/20 00:40 Active 25 mcg VAG Q4H PRN Scalp Electrode [WOMSER] Per Unit Routine Oth 07/19/20 00:37 Ordered Medication Administration Instruction [OM.PC] Q3H Oth 07/19/20 00:45 Ordered Peripheral IV Insertion Adult [OM.PC] Routine Oth 07/19/20 00:37 Ordered Resuscitation Status Routine Resus Stat 07/19/20 00:37 Ordered Medication Orders Butorphanol Tartrate (Stadol) 1 mg IVPUSH Q1H PRN PRN Reason: Pain Carboprost Tromethamine (Hemabate Ds) 250 mcg IM ASDIRECTED PRN PRN Reason: Post Hemorrhage Oxytocin/Sodium Chloride (Oxytocin 30 Unit/500 Ml-Ns) 30 unit in 500 mls @ 999 mls/hr IV TITRATE MICKEY Tranexamic Acid 1,000 mg/ (Sodium Chloride) 110 mls @ 660 mls/hr IV ONETIME PRN PRN Reason: Bleeding Lactated Ringer's (Ringers, Lactated) 1,000 mls @ 150 mls/hr IV ASDIRECTED MICKEY Last Admin: 07/19/20 00:25 Dose: 150 mls/hr Documented by: [id number] Oxytocin/Sodium Chloride (Oxytocin 30 Unit/500 Ml-Ns) 30 unit in 500 mls @ 2 mls/hr IV TITRATE MICKEY; Protocol Lidocaine HCl (Xylocaine 1%) 50 ml INJECT ONETIME PRN PRN Reason: Laceration repair Methylergonovine Maleate (Methergine) 0.2 mg IM ASDIRECTED PRN PRN Reason: Post Hemorrhage Misoprostol (Cytotec) 200 mcg PO ONETIME PRN PRN Reason: Post Hemorrhage Misoprostol (Cytotec) 25 mcg VAG Q4H PRN PRN Reason: Cervical Ripening Last Admin: 07/19/20 05:39 Dose: 25 mcg Documented by: [id number] Admin: 07/19/20 01:06 Dose: 25 mcg Documented by: [id number] Misoprostol (Cytotec) 25 mcg PO Q4H PRN PRN Reason: Cervical Ripening Last Admin: 07/19/20 05:41 Dose: 25 mcg Documented by: [email or web address] Admin: 07/19/20 01:09 Dose: 25 mcg Documented by: [id number] Nalbuphine HCl (Nubain) 10 mg IVPUSH Q1H PRN PRN Reason: Pain (severe 7-10) Ondansetron HCl (Zofran) 4 mg IVPUSH Q6H PRN PRN Reason: Nausea/Vomiting Sodium Chloride (Saline Flush) 10 ml FLUSH ASDIRECTED PRN PRN Reason: Keep Vein Open Sodium Chloride (Saline Flush) 2.5 ml FLUSH ASDIRECTED PRN PRN Reason: Keep Vein Open Sodium Chloride (Normal Saline) 10 ml IV ASDIRECTED PRN PRN Reason: IV Use Sterile Water (Sterile Water For Irrigation) 1,000 ml IRR ASDIRECTED PRN PRN Reason: delivery Terbutaline Sulfate (Brethine) 0.25 mg SUBCUT ASDIRECTED PRN PRN Reason: Tacysystole Assessment/Plan Comment:: Admit for observation for IOL (CDM, AMA) in anticipation of of term viable . FHR Cat I. Contractions noted S/P dose #2 misoprostol. Expectant management, reassess cervical dilation ~1000 am. If no change has been made, may administer cytotec per orders. FSBSs q 4 hours. May ambulate and hydrotherapy as desired after reactive NST achieved; repeat NST per orders. May receive epidural if desired between 4-5 cm[address] new orders. Dr. Terrazas notified and agreeable with POC.
--- NOTE | 2020-07-19 12:09 | PCM.PREANE ---
Preanesthetic Assessment - Anesthesia/Transfusion/Family Hx Anesthesia History: Prior Anesthesia Without Reaction Family History of Anesthesia Reaction: No Transfusion History: No Prior Transfusion(s) - Review of Systems General: No Symptoms Pulmonary: No Symptoms Cardiovascular: No Symptoms Gastrointestinal: No Symptoms Neurological: No Symptoms Other: Reports: None - Physical Assessment Height: 5 ft 3 in Weight: 77.836 kg ASA Class: 2 Mental Status: Alert & Oriented x3 Airway Class: Mallampati = 2 Dentition: Reports: Normal Dentition Thyro-Mental Finger Breadths: 3 Mouth Opening Finger Breadths: 3 ROM/Head Extension: Full Lungs: Clear to Auscultation, Normal Respiratory Effort Cardiovascular: Regular Rate, Regular Rhythm - Lab Values: Laboratory Last Values WBC 5.58 K/uL (4.0-11.0) 07/19/20 00:20 RBC 3.57 M/uL (4.30-5.90) L 07/19/20 00:20 Hgb 11.2 g/dL (12.0-16.0) L 07/19/20 00:20 Hct 33.7 % (36.0-46.0) L 07/19/20 00:20 MCV 94.4 fL (80.0-98.0) 07/19/20 00:20 MCH 31.4 pg (27.0-32.0) 07/19/20 00:20 MCHC 33.2 g/dL (31.0-37.0) 07/19/20 00:20 RDW Std Deviation 50.2 fl (28.0-62.0) 07/19/20 00:20 RDW Coeff of Katie 16 % (11.0-15.0) H 07/19/20 00:20 Plt Count 154 K/uL (150-400) 07/19/20 00:20 MPV 11.50 fL (7.40-12.00) 07/19/20 00:20 POC Glucose 82 mg/dL (60-110) 07/19/20 11:53 SARS-CoV-2 RNA (PORSHA) NEGATIVE (NEGATIVE) 07/19/20 00:26 Blood Type B POSITIVE 07/19/20 00:20 Antibody Screen NEGATIVE 07/19/20 00:20 - Allergies Allergies/Adverse Reactions: Allergies Allergy/AdvReac Type Severity Reaction Status Date / Time No Known Allergies Allergy Verified 07/19/20 00:34 - Acknowledgements Anesthesia Type Planned: Epidural Pt an Appropriate Candidate for the Planned Anesthesia: Yes Alternatives and Risks of Anesthesia Discussed w Pt/Guardian: Yes Pt/Guardian Understands and Agrees with Anesthesia Plan: Yes PreAnesthesia Questionnaire HEENT History: Reports: None Cardiovascular History: Reports: None Respiratory History: Reports: None Gastrointestinal History: Reports: None Genitourinary History: Reports: None 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 (Approximate): Musculoskeletal History: Reports: None Neurological History: Reports: None Psychiatric History: Reports: None Endocrine/Metabolic History: Reports: Diabetes, Gestational, Diabetes, Type II (PO RX) Hematologic History: Reports: None Immunologic History: Reports: None Oncologic (Cancer) History: Reports: None Dermatologic History: Reports: None - Infectious Disease History Infectious Disease History: Reports: None - Past Surgical History Head Surgeries/Procedures: Reports: None HEENT Surgical History: Reports: None Cardiovascular Surgical History: Reports: None Respiratory Surgical History: Reports: None GI Surgical History: Reports: None Female Surgical History: Reports: None Endocrine Surgical History: Reports: None Neurological Surgical History: Reports: None Musculoskeletal Surgical History: Reports: None Oncologic Surgical History: Reports: None Dermatological Surgical History: Reports: None - SUBSTANCE USE Tobacco Use Status *Q: Never Tobacco User Recreational Drug Use History: No - HOME MEDS Home Medications: Home Meds metFORMIN [Glucophage] 1,000 tab PO BID 06/24/20 [History] Pnv No.95/Ferrous Fum/Folic AC [ Tablet] 1 tab PO DAILY 07/19/20 [History] - CURRENT (IN HOUSE) MEDS Current Meds: Current Medications Butorphanol Tartrate (Stadol) 1 mg IVPUSH Q1H PRN PRN Reason: Pain Carboprost Tromethamine (Hemabate Ds) 250 mcg IM ASDIRECTED PRN PRN Reason: Post Hemorrhage Oxytocin/Sodium Chloride (Oxytocin 30 Unit/500 Ml-Ns) 30 unit in 500 mls @ 999 mls/hr IV TITRATE MICKEY Tranexamic Acid 1,000 mg/ (Sodium Chloride) 110 mls @ 660 mls/hr IV ONETIME PRN PRN Reason: Bleeding Lactated Ringer's (Ringers, Lactated) 1,000 mls @ 150 mls/hr IV ASDIRECTED MICKEY Last Admin: 07/19/20 00:25 Dose: 150 mls/hr Documented by: Oxytocin/Sodium Chloride (Oxytocin 30 Unit/500 Ml-Ns) 30 unit in 500 mls @ 2 mls/hr IV TITRATE MICKEY; Protocol Last Titration: 07/19/20 10:51 Dose: 6 munits/min, 6 mls/hr Documented by: Lidocaine HCl (Xylocaine 1%) 50 ml INJECT ONETIME PRN PRN Reason: Laceration repair Methylergonovine Maleate (Methergine) 0.2 mg IM ASDIRECTED PRN PRN Reason: Post Hemorrhage Misoprostol (Cytotec) 200 mcg PO ONETIME PRN PRN Reason: Post Hemorrhage Misoprostol (Cytotec) 25 mcg VAG Q4H PRN PRN Reason: Cervical Ripening Last Admin: 07/19/20 05:39 Dose: 25 mcg Documented by: Misoprostol (Cytotec) 25 mcg PO Q4H PRN PRN Reason: Cervical Ripening Last Admin: 07/19/20 05:41 Dose: 25 mcg Documented by: Nalbuphine HCl (Nubain) 10 mg IVPUSH Q1H PRN PRN Reason: Pain (severe 7-10) Ondansetron HCl (Zofran) 4 mg IVPUSH Q6H PRN PRN Reason: Nausea/Vomiting Sodium Chloride (Saline Flush) 10 ml FLUSH ASDIRECTED PRN PRN Reason: Keep Vein Open Sodium Chloride (Saline Flush) 2.5 ml FLUSH ASDIRECTED PRN PRN Reason: Keep Vein Open Sodium Chloride (Normal Saline) 10 ml IV ASDIRECTED PRN PRN Reason: IV Use Sterile Water (Sterile Water For Irrigation) 1,000 ml IRR ASDIRECTED PRN PRN Reason: delivery Terbutaline Sulfate (Brethine) 0.25 mg SUBCUT ASDIRECTED PRN PRN Reason: Tacysystole
[2020-07-19] MEDS ORDERED: Bupivicaine/fentaNYL/NS 250 ML ONE (12:10)
[2020-07-19] MEDS ORDERED: Lanolin 100% Cream 7 GM Tube TOP PRN (16:57)
[2020-07-19] MEDS ORDERED: Benzocaine/Menthol 20%-0.5% Spray 78 GM Cannister TOP PRN (16:57)
[2020-07-19] MEDS ORDERED: Acetaminophen 500 MG Tab PO PRN ×2 (16:57)
[2020-07-19] MEDS ORDERED: Bisacodyl 10 MG Supp RECTAL PRN (16:57)
[2020-07-19] MEDS ORDERED: Witch Hazel Medicated Pads 40/Jar TOP PRN (16:57)
[2020-07-19] MEDS ORDERED: Docusate Sodium 100 MG Cap PO PRN (16:57)
[2020-07-19] MEDS ORDERED: Ibuprofen 800 MG Tab PO PRN (16:57)
[2020-07-19] MEDS ORDERED: Ibuprofen 400 MG Tab PO PRN (16:57)
--- NOTE | 2020-07-19 17:30 | PCM.DEL ---
L & D Note - General Info Date of Service: 07/19/20 Mother's Due Date: 07/22/20 - Delivery Note Labor: Induced by ARM Cervical Ripening Method: Misoprostil Delivery Outcome: Livebirth Delivery Method: Spontaneous Vaginal Delivery-Single Presentation: Vertex (Via TAUS at bedside) Nuchal Cord: None Anesthesia Type: Epidural Laceration: None Placenta: Intact, Spontaneous Estimated Blood Loss: 200 Resuscitation Needed: No [place]: Stimulated Score 1 min: 8 Score 5 min: 9 Delivery Comments (Free Text/Narrative):: Normal vaginal delivery of live male infant, over intact perineum with epidural anesthesia. Spontaneous delivery of placenta (or manual) with 3-vessel cord (or in rare cases 2-vessel). No laceration. Of Note, baby was delivered by nurse, Provider arrive right before the placenta delivery. Delivery details: Male Weight: 6'15" : 8/9 EBL 200cc - General Info Date of Service: 07/19/20 Admission Dx/Problem (Free Text): Patient Status Order with Admit Dx/Problem 07/19/20 00:05 Patient Status [ADT] Routine Admission Diagnosis/Problem Admission Diagnosis/Problem 07/19/20 07:40 Meredith is a 39 yo at 38+4 weeks gestation (ARLETTE 07/29/2020) that presents to L&D today for IOL due to CDM, AMA. Reports adequate movement. Denies vika vaginal bleeding, significant pain at this time. B pos, RI, GBS neg. EFW at 36-week TAUS 2082 g (4 lb 9 oz), 30th%ile, vertex. FHR 135, + accels, - decels. Contractions every 2-4 minutes, 60-90 seconds, mild, palpates soft. Pertinent medical history includes: CDM, AMA, grand multiparity. NKDA. Medications: PNV, metformin 1000 mg BID. Patient has no other complaints or concerns at this time. Subjective Update: Uncomplicated vaginal delivery. Placenta delivered spontaneously and intact. Mom doing well, pain well controlled. Baby doing well Functional Status: Reports: Pain Controlled - Review of Systems General: Reports: No Symptoms HEENT: Reports: No Symptoms Pulmonary: Reports: No Symptoms Cardiovascular: Reports: No Symptoms Gastrointestinal: Reports: No Symptoms Genitourinary: Reports: No Symptoms Musculoskeletal: Reports: No Symptoms Skin: Reports: No Symptoms Neurological: Reports: No Symptoms Psychiatric: Reports: No Symptoms - Patient Data Weight - Most Recent: 77.836 kg Lab Results Last 24 Hours: Laboratory Results - last 24 hr 07/19/20 07/19/20 07/19/20 Range/Units 00:20 00:20 00:26 WBC 5.58 (4.0-11.0) K/uL RBC 3.57 L (4.30-5.90) M/uL Hgb 11.2 L (12.0-16.0) g/dL Hct 33.7 L (36.0-46.0) % MCV 94.4 (80.0-98.0) fL MCH 31.4 (27.0-32.0) pg MCHC 33.2 (31.0-37.0) g/dL RDW Std Deviation 50.2 (28.0-62.0) fl RDW Coeff of Katie 16 H (11.0-15.0) % Plt Count 154 (150-400) K/uL MPV 11.50 (7.40-12.00) fL POC Glucose (60-110) mg/dL SARS-CoV-2 RNA (PORSHA) NEGATIVE (NEGATIVE) Blood Type B POSITIVE Antibody Screen NEGATIVE 07/19/20 07/19/20 Range/Units 06:24 11:53 WBC (4.0-11.0) K/uL RBC (4.30-5.90) M/uL Hgb (12.0-16.0) g/dL Hct (36.0-46.0) % MCV (80.0-98.0) fL MCH (27.0-32.0) pg MCHC (31.0-37.0) g/dL RDW Std Deviation (28.0-62.0) fl RDW Coeff of Katie (11.0-15.0) % Plt Count (150-400) K/uL MPV (7.40-12.00) fL POC Glucose 86 82 (60-110) mg/dL SARS-CoV-2 RNA (PORSHA) (NEGATIVE) Blood Type Antibody Screen Med Orders - Current: Current Medications Acetaminophen (Tylenol Extra Strength) 500 mg PO Q4H PRN PRN Reason: Pain Acetaminophen (Tylenol Extra Strength) 1,000 mg PO Q4H PRN PRN Reason: Pain Benzocaine/Menthol (Dermoplast Pain Relief 20%-0.5% [place]) 78 gm TOP ASDIRECTED PRN PRN Reason: Perineal Comfort Measure Bisacodyl (Dulcolax) 10 mg RECTAL ONETIME PRN PRN Reason: Constipation Butorphanol Tartrate (Stadol) 1 mg IVPUSH Q1H PRN PRN Reason: Pain Carboprost Tromethamine (Hemabate Ds) 250 mcg IM ASDIRECTED PRN PRN Reason: Post Hemorrhage Docusate Sodium (Colace) 100 mg PO BID PRN PRN Reason: Constipation Emollient Ointment (Lansinoh Hpa) 0 gm TOP ASDIRECTED PRN PRN Reason: Sore Nipples Oxytocin/Sodium Chloride (Oxytocin 30 Unit/500 Ml-Ns) 30 unit in 500 mls @ 999 mls/hr IV TITRATE MICKEY Tranexamic Acid 1,000 mg/ (Sodium Chloride) 110 mls @ 660 mls/hr IV ONETIME PRN PRN Reason: Bleeding Lactated Ringer's (Ringers, Lactated) 1,000 mls @ 150 mls/hr IV ASDIRECTED MICKEY Last Admin: 07/19/20 00:25 Dose: 150 mls/hr Documented by: Oxytocin/Sodium Chloride (Oxytocin 30 Unit/500 Ml-Ns) 30 unit in 500 mls @ 2 mls/hr IV TITRATE MICKEY; Protocol Last Titration: 07/19/20 12:53 Dose: 0 munits/min, 0 mls/hr Documented by: Ibuprofen (Motrin) 400 mg PO Q4H PRN PRN Reason: Pain Ibuprofen (Motrin) 800 mg PO Q6H PRN PRN Reason: Pain Lidocaine HCl (Xylocaine 1%) 50 ml INJECT ONETIME PRN PRN Reason: Laceration repair Methylergonovine Maleate (Methergine) 0.2 mg IM ASDIRECTED PRN PRN Reason: Post Hemorrhage Misoprostol (Cytotec) 200 mcg PO ONETIME PRN PRN Reason: Post Hemorrhage Misoprostol (Cytotec) 25 mcg VAG Q4H PRN PRN Reason: Cervical Ripening Last Admin: 07/19/20 05:39 Dose: 25 mcg Documented by: Misoprostol (Cytotec) 25 mcg PO Q4H PRN PRN Reason: Cervical Ripening Last Admin: 07/19/20 05:41 Dose: 25 mcg Documented by: Nalbuphine HCl (Nubain) 10 mg IVPUSH Q1H PRN PRN Reason: Pain (severe 7-10) Ondansetron HCl (Zofran) 4 mg IVPUSH Q6H PRN PRN Reason: Nausea/Vomiting Sodium Chloride (Saline Flush) 10 ml FLUSH ASDIRECTED PRN PRN Reason: Keep Vein Open Sodium Chloride (Saline Flush) 2.5 ml FLUSH ASDIRECTED PRN PRN Reason: Keep Vein Open Sodium Chloride (Normal Saline) 10 ml IV ASDIRECTED PRN PRN Reason: IV Use Sterile Water (Sterile Water For Irrigation) 1,000 ml IRR ASDIRECTED PRN PRN Reason: delivery Terbutaline Sulfate (Brethine) 0.25 mg SUBCUT ASDIRECTED PRN PRN Reason: Tacysystole Witch Cassie (Tucks) 1 pad TOP ASDIRECTED PRN PRN Reason: comfort care Discontinued Medications Fentanyl/Bupivacaine HCl (Fentanyl/Bupivacaine/Ns 2 Mcg-0.125% 250 Ml) Confirm Administered Dose 250 mls @ as directed .ROUTE .[facility]MED ONE Stop: 07/19/20 12:11 - Exam General: Alert, Oriented Neck: Supple Lungs: Normal Respiratory Effort Cardiovascular: Regular Rate, Regular Rhythm GI/Abdominal Exam: Soft Back Exam: Normal Inspection Extremities: Normal Inspection Skin: Warm Neurological: No New Focal Deficit Psy/Mental Status: Alert, Normal Affect, Normal Mood - Problem List & Annotations (1) Term delivered SNOMED Code(s): 26607932, 209987228 Code(s): O80 - ENCOUNTER FOR FULL-TERM UNCOMPLICATED DELIVERY Status: Acute Current Visit: Yes (2) Advanced maternal age (AMA) in SNOMED Code(s): 319684341 Code(s): PBD2491 - Status: Acute Priority: High Current Visit: Yes (3) Diabetes mellitus affecting in third trimester SNOMED Code(s): 28085917, 91310793 Code(s): O24.913 - UNSPECIFIED DIABETES MELLITUS IN , THIRD TRIMESTER Status: Acute Priority: High Current Visit: Yes (4) Vaginal delivery SNOMED Code(s): 532542224 Code(s): O80 - ENCOUNTER FOR FULL-TERM UNCOMPLICATED DELIVERY Status: Acute Current Visit: No - Problem List Review Problem List Initiated/Reviewed/Updated: Yes - My Orders Last 24 Hours: My Active Orders 07/19/20 16:57 Acetaminophen [Tylenol Extra Strength] 1,000 mg PO Q4H PRN Acetaminophen [Tylenol Extra Strength] 500 mg PO Q4H PRN Benzocaine/Menthol [Dermoplast Pain Relief 20%-0.5% [place]] 78 gm TOP ASDIRECTED PRN Docusate Sodium [Colace] 100 mg PO BID PRN Ibuprofen [Motrin] 400 mg PO Q4H PRN Ibuprofen [Motrin] 800 mg PO Q6H PRN Lanolin [Lansinoh HPA] See Dose Instructions TOP ASDIRECTED PRN bisacodyL [Dulcolax] 10 mg RECTAL ONETIME PRN witch Cassie [Tucks] 1 pad TOP ASDIRECTED PRN 07/19/20 16:58 Patient Status [ADT] Routine May Shower [RC] ASDIRECTED Up ad Thi [RC] ASDIRECTED Vital Signs [RC] PER UNIT ROUTINE Assess Lochia [WOMSER] Per Unit Routine Assess Uterine Involution [WOMSER] Per Unit Routine Peripheral IV Discontinue [OM.PC] Routine 07/20/20 05:11 HEMOGLOBIN/HEMATOCRIT,HH [HEME] Timed - Plan Plan:: 39yo G6 now P6 s/p uncomplicated vaginal delivery at 38w4d GA after IOL. care was c/b GDM and AMA. Mom and baby doing well. Routine care
--- NOTE | 2020-07-20 09:25 | PCM48HPAN ---
Post Anesthesia Note - EVALUATION WITHIN 48HRS OF ANESTHETIC Vital Signs in Normal Range: Yes Patient Participated in Evaluation: Yes Respiratory Function Stable: Yes Airway Patent: Yes Cardiovascular Function Stable: Yes Hydration Status Stable: Yes Pain Control Satisfactory: Yes Nausea and Vomiting Control Satisfactory: Yes Mental Status Recovered: Yes Vital Signs: Last Vital Signs Temp 36.2 C 07/20/20 08:15 Pulse 78 07/20/20 08:15 Resp 16 07/20/20 08:15 BP 113/76 07/20/20 08:15 Pulse Ox 100 07/20/20 08:15 - COMMENTS/OBSERVATIONS Free Text/Narrative:: No post problems.
--- NOTE | 2020-07-20 09:30 | PCM48HPAN ---
Post Anesthesia Note - EVALUATION WITHIN 48HRS OF ANESTHETIC Vital Signs in Normal Range: Yes Patient Participated in Evaluation: Yes Respiratory Function Stable: Yes Airway Patent: Yes Cardiovascular Function Stable: Yes Hydration Status Stable: Yes Pain Control Satisfactory: Yes Nausea and Vomiting Control Satisfactory: Yes Mental Status Recovered: Yes Vital Signs: Last Vital Signs Temp 36.2 C 07/20/20 08:15 Pulse 78 07/20/20 08:15 Resp 16 07/20/20 08:15 BP 113/76 07/20/20 08:15 Pulse Ox 100 07/20/20 08:15 - COMMENTS/OBSERVATIONS Free Text/Narrative:: Doing well. No problems noted at this time.
--- NOTE | 2020-07-20 16:08 | PCM.DCSUM1 ---
Discharge Summary - Hospital Course Free Text/Narrative:: 39yo G6 now [id number] s/p uncomplicated vaginal delivery at 38w4d GA after IOL for GDM. care was otherwise unremarkable. IOL started with 2 rounds of pitocin, then pursuit with Pitocin. Patient SROM after pitocin was started, and delivered ~ 1hr after Delivered healthy BB, 8/9. Both have been doing well. Post course unremarkable Maternal BGs have been normal and Hgb is 11. Diagnosis: Stroke: No Modified Andreas Scale: No Symptoms at All Modified Andreas Scale Score: 0 - Discharge Data Discharge Date: 07/20/20 Discharge Disposition: Home, Self-Care 01 Condition: Good - Referral to Home Health Primary Care Physician: PCP None - Discharge Diagnosis/Problem(s) (1) Term delivered SNOMED Code(s): 01284399, 581568728 ICD Code: O80 - ENCOUNTER FOR FULL-TERM UNCOMPLICATED DELIVERY Status: Acute Current Visit: Yes (2) Advanced maternal age (AMA) in SNOMED Code(s): 268525361 ICD Code: [id number] - Status: Acute Priority: High Current Visit: Yes (3) Diabetes mellitus affecting in third trimester SNOMED Code(s): 48222492, 93855965 ICD Code: O24.913 - UNSPECIFIED DIABETES MELLITUS IN , THIRD TRIMESTER Status: Acute Priority: High Current Visit: Yes - Patient Instructions Diet: Usual Diet as Tolerated Activity: No Lifting Over 10 Pounds, No Strenuous Activities Showering/Bathing: May Shower Notify Provider of: Fever, Increased Pain, Swelling and Redness, Drainage, Nausea and/or Vomiting - Discharge Plan *PRESCRIPTION DRUG MONITORING PROGRAM REVIEWED*: Not Applicable *COPY OF PRESCRIPTION DRUG MONITORING REPORT IN PATIENT EMY: Not Applicable Home Medications: Home Meds Pnv No.95/Ferrous Fum/Folic AC [ Tablet] 1 tab PO DAILY 07/19/20 [History] Patient Handouts: Baby Blues, Care After Vaginal Delivery - Discharge Summary/Plan Comment DC Time >30 min.: Yes - General Info Date of Service: 07/20/20 Admission Dx/Problem (Free Text: Patient Status Order with Admit Dx/Problem 07/19/20 00:05 Patient Status [ADT] Routine Admission Diagnosis/Problem Admission Diagnosis/Problem 07/19/20 07:40 Meredith is a 39 yo at 38+4 weeks gestation (ARLETTE 07/29/2020) that presents to L&D today for IOL due to CDM, AMA. Reports adequate movement. Denies vika vaginal bleeding, significant pain at this time. B pos, RI, GBS neg. EFW at 36-week TAUS 2082 g (4 lb 9 oz), 30th%ile, vertex. FHR 135, + accels, - decels. Contractions every 2-4 minutes, 60-90 seconds, mild, palpates soft. Pertinent medical history includes: CDM, AMA, grand multiparity. NKDA. Med ications: PNV, metformin 1000 mg BID. Patient has no other complaints or concerns at this time. Subjective Update: S/P Uncomplicated vaginal delivery. Mom doing well, pain well controlled. Baby doing well Ready to be discharged home Functional Status: Reports: Pain Controlled, Tolerating Diet, Ambulating, Urinating - Review of Systems General: Reports: No Symptoms HEENT: Reports: No Symptoms Pulmonary: Reports: No Symptoms Cardiovascular: Reports: No Symptoms Gastrointestinal: Reports: No Symptoms Genitourinary: Reports: No Symptoms Musculoskeletal: Reports: No Symptoms Skin: Reports: No Symptoms Neurological: Reports: No Symptoms Psychiatric: Reports: No Symptoms - Patient Data Vitals - Most Recent: Last Vital Signs Temp 97.1 F 07/20/20 08:15 Pulse 78 07/20/20 08:15 Resp 16 07/20/20 08:15 BP 113/76 07/20/20 08:15 Pulse Ox 100 07/20/20 08:15 Weight - Most Recent: 77.836 kg Lab Results - Last 24 hrs: Laboratory Results - last 24 hr 07/19/20 07/20/20 07/20/20 Range/Units 20:02 06:28 11:38 Hgb 11.1 L (12.0-16.0) g/dL Hct 34.1 L (36.0-46.0) % POC Glucose 88 92 (60-110) mg/dL Med Orders - Current: Current Medications Acetaminophen (Tylenol Extra Strength) 500 mg PO Q4H PRN PRN Reason: Pain Acetaminophen (Tylenol Extra Strength) 1,000 mg PO Q4H PRN PRN Reason: Pain Last Admin: 07/19/20 19:12 Dose: 1,000 mg Documented by: Benzocaine/Menthol (Dermoplast Pain Relief 20%-0.5% [place]) 78 gm TOP ASDIRECTED PRN PRN Reason: Perineal Comfort Measure Bisacodyl (Dulcolax) 10 mg RECTAL ONETIME PRN PRN Reason: Constipation Butorphanol Tartrate (Stadol) 1 mg IVPUSH Q1H PRN PRN Reason: Pain Carboprost Tromethamine (Hemabate Ds) 250 mcg IM ASDIRECTED PRN PRN Reason: Post Hemorrhage Docusate Sodium (Colace) 100 mg PO BID PRN PRN Reason: Constipation Last Admin: 07/20/20 08:48 Dose: 100 mg Documented by: Emollient Ointment (Lansinoh Hpa) 0 gm TOP ASDIRECTED PRN PRN Reason: Sore Nipples Oxytocin/Sodium Chloride (Oxytocin 30 Unit/500 Ml-Ns) 30 unit in 500 mls @ 999 mls/hr IV TITRATE MICKEY Tranexamic Acid 1,000 mg/ (Sodium Chloride) 110 mls @ 660 mls/hr IV ONETIME PRN PRN Reason: Bleeding Lactated Ringer's (Ringers, Lactated) 1,000 mls @ 150 mls/hr IV ASDIRECTED MICKEY Last Admin: 07/19/20 00:25 Dose: 150 mls/hr Documented by: Oxytocin/Sodium Chloride (Oxytocin 30 Unit/500 Ml-Ns) 30 unit in 500 mls @ 2 mls/hr IV TITRATE MICEKY; Protocol Last Titration: 07/19/20 12:53 Dose: 0 munits/min, 0 mls/hr Documented by: Ibuprofen (Motrin) 400 mg PO Q4H PRN PRN Reason: Pain Ibuprofen (Motrin) 800 mg PO Q6H PRN PRN Reason: Pain Last Admin: 07/19/20 19:59 Dose: 800 mg Documented by: Lidocaine HCl (Xylocaine 1%) 50 ml INJECT ONETIME PRN PRN Reason: Laceration repair Methylergonovine Maleate (Methergine) 0.2 mg IM ASDIRECTED PRN PRN Reason: Post Hemorrhage Misoprostol (Cytotec) 200 mcg PO ONETIME PRN PRN Reason: Post Hemorrhage Misoprostol (Cytotec) 25 mcg VAG Q4H PRN PRN Reason: Cervical Ripening Last Admin: 07/19/20 05:39 Dose: 25 mcg Documented by: Misoprostol (Cytotec) 25 mcg PO Q4H PRN PRN Reason: Cervical Ripening Last Admin: 07/19/20 05:41 Dose: 25 mcg Documented by: Nalbuphine HCl (Nubain) 10 mg IVPUSH Q1H PRN PRN Reason: Pain (severe 7-10) Ondansetron HCl (Zofran) 4 mg IVPUSH Q6H PRN PRN Reason: Nausea/Vomiting Sodium Chloride (Saline Flush) 10 ml FLUSH ASDIRECTED PRN PRN Reason: Keep Vein Open Sodium Chloride (Saline Flush) 2.5 ml FLUSH ASDIRECTED PRN PRN Reason: Keep Vein Open Sodium Chloride (Normal Saline) 10 ml IV ASDIRECTED PRN PRN Reason: IV Use Sterile Water (Sterile Water For Irrigation) 1,000 ml IRR ASDIRECTED PRN PRN Reason: delivery Terbutaline Sulfate (Brethine) 0.25 mg SUBCUT ASDIRECTED PRN PRN Reason: Tacysystole Witch Cassie (Tucks) 1 pad TOP ASDIRECTED PRN PRN Reason: comfort care Discontinued Medications Fentanyl/Bupivacaine HCl (Fentanyl/Bupivacaine/Ns 2 Mcg-0.125% 250 Ml) Confirm Administered Dose 250 mls @ as directed .ROUTE .[facility] ONE Stop: 07/19/20 12:11 - Exam General: Reports: Alert, Oriented Neck: Reports: Supple Lungs: Reports: Normal Respiratory Effort Cardiovascular: Reports: Regular Rate GI/Abdominal Exam: Soft, Non-Tender Extremities: Normal Inspection Skin: Reports: Warm, Dry Psy/Mental Status: Reports: Alert, Normal Affect, Normal Mood Physical Findings Comments:: Fundus palpated below the umbilicus. Firm, non-tender
== END 2020-07-20 16:30 | disposition home or self-care (01) | DRG 807 ==
LOC: MW.OB 16:58 → OBSVTOIN 07-19 16:58
PROVIDERS: ADMIT Obstetrics & Gynecology; ATTEND Obstetrics & Gynecology
PROC: 10E0XZZ Delivery of Products of Conception, External Approach (ICD-10-PCS; principal; 2020-07-19)
PROC: 3E0P7VZ Introduction of Hormone into Female Reproductive, Via Natural or Artificial Opening (ICD-10-PCS; 2020-07-19)
PROC: 3E0R3BZ Introduction of Anesthetic Agent into Spinal Canal, Percutaneous Approach (ICD-10-PCS; 2020-07-19)
DX: O24.429 Gestational diabetes mellitus in childbirth, unspecified control (principal); Z37.0 Single live birth; Z3A.38 38 weeks gestation of pregnancy; Z20.822 Contact with and (suspected) exposure to COVID-19
CPT/HCPCS: 36415; 59025; 59409; 82962; 85014; 85018; 85027; 86592; 86850; 86900; 86901; A9270-GY; J2590; J3010; J7120; U0002

== ENCOUNTER 2020-11-06 07:20 | Emergency (ER) | payer OTHER, SELFPAY ==
[2020-11-06] MEDS ORDERED: Morphine 4 MG/ML Syringe IVPUSH ONE (07:37)
[2020-11-06] MEDS ORDERED: Sodium Chloride 0.9% 1,000 ML IV ONE (07:37)
[2020-11-06] MEDS ORDERED: Ondansetron 4 MG/2 ML SDV IVPUSH ONE (07:37)
--- NOTE | 2020-11-06 07:43 | EDM.PDOC ---
ED HPI GENERAL MEDICAL PROBLEM - General Chief Complaint: Abdominal Pain Stated Complaint: ABDOMINAL PAIN Time Seen by Provider: 11/06/20 07:33 Source of Information: Reports: Patient History Limitations: Reports: No Limitations - History of Present Illness INITIAL COMMENTS - FREE TEXT/NARRATIVE: Patient is a 40-year-old female who presents today for right upper quadrant pain. Patient states the pain started about 3 to 4 hours ago. Patient reports she has history of gallstones but never had her gallbladder removed. Patient states she also had some vomiting today. Patient does not notice anything makes the pain better and no worse. Patient not tried any medicine for the pain for she came in. Patient denies any fever chills shortness of breath. Abdominal Pain Pain Score (Numeric/FACES): 10 - Related Data Allergies Allergy/AdvReac Type Severity Reaction Status Date / Time No Known Allergies Allergy Verified 11/06/20 07:45 Home Meds: Home Meds . 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: Musculoskeletal History: Reports: None Neurological History: Reports: None Psychiatric History: Reports: None Endocrine/Metabolic History: Reports: Diabetes, Gestational, Diabetes, Type II (PO RX) Hematologic History: Reports: None Immunologic History: Reports: None Oncologic (Cancer) History: Reports: None Dermatologic History: Reports: None - Infectious Disease History Infectious Disease History: Reports: None - Past Surgical History Head Surgeries/Procedures: Reports: None HEENT Surgical History: Reports: None Cardiovascular Surgical History: Reports: None Respiratory Surgical History: Reports: None GI Surgical History: Reports: None Female Surgical History: Reports: None Endocrine Surgical History: Reports: None Neurological Surgical History: Reports: None Musculoskeletal Surgical History: Reports: None Oncologic Surgical History: Reports: None Dermatological Surgical History: Reports: None Social & Family History - Family History HEENT: Reports: None Cardiac: Reports: Hypertension Respiratory: Reports: None GI: Reports: None : Reports: None OBGYN: Reports: Musculoskeletal: Reports: None Neurological: Reports: None Psychiatric: Reports: None Endocrine/Metabolic: Reports: Diabetes, type II Hematologic: Reports: None Immunologic: Reports: None Dermatologic: Reports: None Oncologic: Reports: None - Caffeine Use Caffeine Use: Reports: Tea ED ROS GENERAL - Review of Systems Review Of Systems: See Below Constitutional: Reports: No Symptoms HEENT: Reports: No Symptoms Respiratory: Reports: No Symptoms Cardiovascular: Reports: No Symptoms Endocrine: Reports: No Symptoms GI/Abdominal: Reports: Abdominal Pain : Reports: No Symptoms Musculoskeletal: Reports: No Symptoms Skin: Reports: No Symptoms Neurological: Reports: No Symptoms Psychiatric: Reports: No Symptoms Hematologic/Lymphatic: Reports: No Symptoms Immunologic: Reports: No Symptoms ED EXAM, GI/ABD - Physical Exam Exam: See Below Exam Limited By: No Limitations General Appearance: Alert, WD/WN, No Apparent Distress Respiratory/Chest: No Respiratory Distress, Lungs Clear, Normal Breath Sounds Cardiovascular: Normal Peripheral Pulses, Regular Rate, Rhythm GI/Abdominal Exam: Normal Bowel Sounds, Soft, Tender (RUQ) Neurological: Alert, Oriented, CN II-XII Intact, Normal Cognition, Normal Gait Course - Vital Signs Last Recorded V/S: Last Vital Signs Temp 97.6 F 11/06/20 07:45 Pulse 84 11/06/20 09:04 Resp 17 11/06/20 08:04 BP 125/78 11/06/20 09:04 Pulse Ox 99 11/06/20 09:04 - Orders/Labs/Meds Labs: Laboratory Tests 11/06/20 11/06/20 11/06/20 Range/Units 07:39 07:39 09:05 WBC 4.89 (4.0-11.0) K/uL RBC 4.62 (4.30-5.90) M/uL Hgb 13.7 (12.0-16.0) g/dL Hct 42.6 (36.0-46.0) % MCV 92.2 (80.0-98.0) fL MCH 29.7 (27.0-32.0) pg MCHC 32.2 (31.0-37.0) g/dL RDW Std Deviation 49.1 (28.0-62.0) fl RDW Coeff of Katie 15 (11.0-15.0) % Plt Count 250 (150-400) K/uL MPV 10.20 (7.40-12.00) fL Neut % (Auto) 56.9 (48.0-80.0) % Lymph % (Auto) 38.4 (16.0-40.0) % [place] % (Auto) 3.7 (0.0-15.0) % Eos % (Auto) 0.8 (0.0-7.0) % Baso % (Auto) 0.2 (0.0-1.5) % Neut # (Auto) 2.8 (1.4-5.7) K/uL Lymph # (Auto) 1.9 (0.6-2.4) K/uL [place] # (Auto) 0.2 (0.0-0.8) K/uL Eos # (Auto) 0.0 (0.0-0.7) K/uL Baso # (Auto) 0.0 (0.0-0.1) K/uL Nucleated RBC % 0.0 /100WBC Nucleated RBCs # 0 K/uL Sodium 140 (136-145) mmol/L Potassium 3.7 (3.5-5.1) mmol/L Chloride 104 (98-107) mmol/L Carbon Dioxide 21.8 (21.0-32.0) mmol/L BUN 9 (7.0-18.0) mg/dL Creatinine 1.2 H (0.6-1.0) mg/dL Est Cr Clr Drug Dosing 50.52 mL/min Estimated GFR (MDRD) 59.7 ml/min Glucose 214 H (74-106) mg/dL Calcium 8.6 (8.5-10.1) mg/dL Phosphorus 3.2 (2.6-4.7) mg/dL Magnesium 2.1 (1.8-2.4) mg/dL Total Bilirubin 0.4 (0.2-1.0) mg/dL AST 12 L (15-37) IU/L ALT 31 (14-63) IU/L Alkaline Phosphatase 49 (46-116) U/L Total Protein 8.1 (6.4-8.2) g/dL Albumin 4.2 (3.4-5.0) g/dL Globulin 3.9 (2.6-4.0) g/dL Albumin/Globulin Ratio 1.1 (0.9-1.6) Lipase 260 (73-393) U/L Urine Color YELLOW Urine Appearance CLEAR Urine pH 5.5 (5.0-8.0) Ur Specific Tyler 1.010 (1.001-1.035) Urine Protein NEGATIVE (NEGATIVE) mg/dL Urine Glucose (UA) NEGATIVE (NEGATIVE) mg/dL Urine Ketones NEGATIVE (NEGATIVE) mg/dL Urine Occult Blood NEGATIVE (NEGATIVE) Urine Nitrite NEGATIVE (NEGATIVE) Urine Bilirubin NEGATIVE (NEGATIVE) Urine Urobilinogen 0.2 (<2.0) EU/dL Ur Leukocyte Esterase NEGATIVE (NEGATIVE) Meds: Medications Discontinued Medications Generic Name Dose Route Start Last Admin Trade Name Freq PRN Reason Stop Dose Admin Sodium Chloride 1,000 mls @ 999 mls/hr 11/06/20 07:37 11/06/20 08:08 Normal Saline IV 11/06/20 08:37 999 mls/hr .BOLUS ONE Administration Morphine Sulfate 4 mg 11/06/20 07:37 11/06/20 08:08 Morphine 4 Mg/Ml Syringe IVPUSH 11/06/20 07:38 4 mg ONETIME ONE Administration Ondansetron HCl 4 mg 11/06/20 07:37 11/06/20 08:08 Ondansetron 4 Mg/2 Ml Sdv IVPUSH 11/06/20 07:38 4 mg ONETIME ONE Administration - Re-Assessments/Exams Free Text/Narrative Re-Assessment/Exam: 11/06/20 09:37 Patient ultrasound shows cholelithiasis but does not show any signs of cholecystitis or any obstructions. Patient labs within normal range. Patient had adequate pain control. Patient will be discharged home to follow-up with general surgery as outpatient for possible bladder removal. Departure - Departure Time of Disposition: 09:37 Disposition: Home, Self-Care 01 Condition: Good Clinical Impression: Cholelithiases - Discharge Information *PRESCRIPTION DRUG MONITORING PROGRAM REVIEWED*: Not Applicable *COPY OF PRESCRIPTION DRUG MONITORING REPORT IN PATIENT EMY: Not Applicable Instructions: Cholelithiasis Referrals: Rhona Jarrell MD [Primary Care Provider] - Forms: ED Department Discharge Additional Instructions: The following information is given to patients seen in the emergency department who are being discharged to home. This information is to outline your options for follow-up care. We provide all patients seen in our emergency department with a follow-up referral. The need for follow-up, as well as the timing and circumstances, are variable depending upon the specifics of your emergency department visit. If you don't have a primary care physician on staff, we will provide you with a referral. We always advise you to contact your personal physician following an emergency department visit to inform them of the circumstance of the visit and for follow-up with them and/or the need for any referrals to a consulting specialist. The emergency department will also refer you to a specialist when appropriate. This referral assures that you have the opportunity for follow-up care with a specialist. All of these measure are taken in an effort to provide you with optimal care, which includes your follow-up. Under all circumstances we always encourage you to contact your private physician who remains a resource for coordinating your care. When calling for follow-up care, please make the office aware that this follow-up is from your recent emergency room visit. If for any reason you are refused follow-up, please contact the [facility] at and asked to speak to the emergency department charge nurse. Please follow up with your primary care physician. If you do not have a primary care physician, see below: [facility] - General Surgery Professional [address], [address] [place] [address] You were seen here today for abdominal pain. On ultrasound we saw you have a stone pretty large inside your gallbladder that may need to be removed at some point. At this moment you do not have any acute signs to require your gallbladder to be taken out right now. We would like you to call the number above and follow-up with general surgery as outpatient to have your gallbladder removed. We will send you home with some pain meds that you can take if your pain becomes too severe in the meantime. If you have any increased nausea vomiting difficulty eating drinking please return to the ED immediately. Sepsis Event Note (ED) - Focused Exam Vital Signs: Vital Signs Temp Pulse Resp BP Pulse Ox 11/06/20 09:04 84 125/78 99 11/06/20 08:34 80 137/82 98 11/06/20 08:04 95 17 146/90 H 100 11/06/20 07:45 97.6 F 77 17 161/76 H 97 - Assessment/Plan Plan: Patient is a 40-year-old female who presents today for right upper quadrant pain. Patient has history of gallstones. Patient pain likely related to gallbladder will obtain labs ultrasound and reassess.
[2020-11-06 08:18] LABS: CARBON DIOXIDE,CO2 21.8 mmol/L (21.0-32.0); POTASSIUM,K 3.7 mmol/L (3.5-5.1)
--- NOTE | 2020-11-06 08:51 | US ---
INDICATION: Right upper quadrant pain. Nausea and vomiting. History of gallstone. TECHNIQUE: Ultrasound abdomen limited. Sonographic images of the right upper quadrant were obtained using downing-scale and color Doppler images. COMPARISON: FINDINGS: Liver: Normal in size and echotexture. No masses. No intrahepatic biliary dilatation. Portal vein is patent. Gallbladder: Large 2.2 cm gallstone. Normal wall thickness. No pericholecystic fluid. Common bile duct: 1.3 mm. Pancreas: Grossly unremarkable Right kidney: 10.7 x 4.7 x 5.6 cm. Normal echotexture and cortex. No masses, stones, or hydronephrosis. IMPRESSION: Cholelithiasis. No biliary dilatation or pericholecystic fluid collections Dictated by Elder Gaviria MD @ 11/06/2020 8:49:[address] Elder Gaviria @ Nov 06 2020 8:49AM
== END 2020-11-06 10:00 | disposition home or self-care (01) ==
LOC: MW.ED 07:20
DX: K80.20 Calculus of gallbladder without cholecystitis without obstruction (principal)
CPT/HCPCS: 36415; 76705; 80053; 81003; 83690; 83735; 84100; 85025; 96374; 96375; 99284; J2270; J2405; J7030; 99283

== ENCOUNTER 2020-11-26 10:16 | Day surgery (SDC) | payer OTHER ==
[~2020-11-26 10:16] MED LIST: Glycopyrrolate 0.2 MG/ML SDV ONE; Ketorolac 30 MG/ML SDV ONE; Lactated Ringers 1,000 ML IV SCH; Lidocaine 2% 5 ML SDV ONE; Midazolam 1 MG/ML 2 ML SDV ONE; Ondansetron 4 MG/2 ML SDV ONE; Propofol 200 MG/20 ML SDV ONE; Rocuronium Bromide 50 MG/5 ML Syringe ONE; Sodium Chloride 0.9% 10 ML SDV IV PRN; Sodium Chloride 0.9% 10 ML Syringe FLUSH PRN; Sodium Chloride 0.9% 2.5 ML Syringe FLUSH PRN; ceFAZolin 2 GM in Premix Bag 1 BAG IV ONE; fentaNYL 250 MCG/5 ML SDV ONE
[2020-11-26] MEDS ORDERED: Sodium Chloride 0.9% 20 ML ONE (10:36)
[2020-11-26] MEDS ORDERED: ceFAZolin 1 GM Vial ONE (10:36)
[2020-11-26] MEDS ORDERED: Bupivacaine 0.5% 30 ML SDV ONE (10:58)
[2020-11-26] MEDS ORDERED: Octyl 2-Cyanoacrylate 1 Tube ONE (10:58)
--- NOTE | 2020-11-26 11:15 | PCM.PREANE ---
Preanesthetic Assessment - Anesthesia/Transfusion/Family Hx Anesthesia History: Prior Anesthesia Without Reaction Family History of Anesthesia Reaction: No Transfusion History: No Prior Transfusion(s) - Review of Systems General: No Symptoms Pulmonary: No Symptoms Cardiovascular: No Symptoms Gastrointestinal: No Symptoms Neurological: No Symptoms Other: Reports: None - Physical Assessment NPO Status Date: 11/26/20 NPO Status Time: 00:01 Height: 5 ft 3 in Weight: 170 lb ASA Class: 2 Mental Status: Alert & Oriented x3 Airway Class: Mallampati = 2 Dentition: Reports: Normal Dentition ROM/Head Extension: Full Lungs: Clear to Auscultation, Normal Respiratory Effort Cardiovascular: Regular Rate, Regular Rhythm - Lab Values: Laboratory Last Values POC Glucose 124 mg/dL (70-99) H 11/26/20 10:44 Urine HCG, Qual NEGATIVE (NEGATIVE) 11/26/20 10:40 - Allergies Allergies/Adverse Reactions: Allergies Allergy/AdvReac Type Severity Reaction Status Date / Time No Known Allergies Allergy Verified 11/20/20 07:32 - Anesthesia Plan Pre-Op Medication Ordered: None - Acknowledgements Anesthesia Type Planned: General Anesthesia Pt an Appropriate Candidate for the Planned Anesthesia: Yes Alternatives and Risks of Anesthesia Discussed w Pt/Guardian: Yes Pt/Guardian Understands and Agrees with Anesthesia Plan: Yes Additional Comments: npo after mn tob none etoh none obesity bmi 30 no cv problems par no questions aodm PreAnesthesia Questionnaire HEENT History: Reports: None Cardiovascular History: Reports: None Other Cardiovascular History: elevated BP following vaginal deliver in July Respiratory History: Reports: None Gastrointestinal History: Reports: None Genitourinary History: Reports: None 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: Musculoskeletal History: Reports: None Neurological History: Reports: None Psychiatric History: Reports: None Endocrine/Metabolic History: Reports: Diabetes, Gestational, Diabetes, Type II Hematologic History: Reports: None Immunologic History: Reports: None Oncologic (Cancer) History: Reports: None Dermatologic History: Reports: None - Infectious Disease History Infectious Disease History: Reports: None - Past Surgical History Head Surgeries/Procedures: Reports: None HEENT Surgical History: Reports: None Cardiovascular Surgical History: Reports: None Respiratory Surgical History: Reports: None GI Surgical History: Reports: None Female Surgical History: Reports: None Endocrine Surgical History: Reports: None Neurological Surgical History: Reports: None Musculoskeletal Surgical History: Reports: None Oncologic Surgical History: Reports: None Dermatological Surgical History: Reports: None - SUBSTANCE USE Tobacco Use Status *Q: Never Tobacco User - HOME MEDS Home Medications: Home Meds Acetaminophen/oxyCODONE [Percocet 325-5 MG] 1 tab PO ASDIRECTED PRN 11/20/20 [History] Multivit-Minerals/Folic Acid [Multivitamin Gummies] 1 tab.chew CHEW DAILY 11/20/20 [History] Scopolamine [Transderm-Scop] 1 patch TRDERM ONETIME 11/20/20 [History] metFORMIN HCl [Metformin HCl ER] 500 mg PO BID 11/20/20 [History] - CURRENT (IN HOUSE) MEDS Current Meds: Current Medications Lactated Ringer's (Ringers, Lactated) 1,000 mls @ 125 mls/hr IV ASDIRECTED MICKEY Sodium Chloride (Sodium Chloride 0.9% 2.5 Ml Syringe) 2.5 ml FLUSH ASDIRECTED PRN PRN Reason: Keep Vein Open Sodium Chloride (Sodium Chloride 0.9% 10 Ml Sdv) 10 ml IV ASDIRECTED PRN PRN Reason: IV Use Sodium Chloride (Sodium Chloride 0.9% 10 Ml Syringe) 10 ml FLUSH ASDIRECTED PRN PRN Reason: Keep Vein Open Discontinued Medications Bupivacaine HCl (Bupivacaine 0.5% 30 Ml Sdv) Confirm Administered Dose 30 ml .ROUTE .STK-MED ONE Stop: 11/26/20 10:59 Cefazolin Sodium (Cefazolin 1 Gm Vial) Confirm Administered Dose 2 gm .ROUTE .STK-MED ONE Stop: 11/26/20 10:37 Fentanyl (Fentanyl 250 Mcg/5 Ml Sdv) Confirm Administered Dose 250 mcg .ROUTE .STK-MED ONE Stop: 11/26/20 10:13 Glycopyrrolate (Glycopyrrolate 0.2 Mg/Ml Sdv) Confirm Administered Dose 0.2 mg .ROUTE .STK-MED ONE Stop: 11/26/20 10:14 Cefazolin Sodium/Dextrose 2 gm (/ Premix) 50 mls @ 100 mls/hr IV ONETIME ONE Stop: 11/25/20 11:22 Sodium Chloride (Normal Saline) Confirm Administered Dose 20 mls @ as directed .ROUTE .STK-MED ONE Stop: 11/26/20 10:37 Ketorolac Tromethamine (Ketorolac 30 Mg/Ml Sdv) Confirm Administered Dose 30 mg .ROUTE .[employer]-MED ONE Stop: 11/26/20 10:14 Lidocaine (Lidocaine 2% 5 Ml Sdv) Confirm Administered Dose 5 ml .ROUTE .[employer]-MED ONE Stop: 11/26/20 10:14 Midazolam HCl (Midazolam 1 Mg/Ml 2 Ml Sdv) Confirm Administered Dose 2 mg .ROUTE .[employer] ONE Stop: 11/26/20 10:13 Octyl Cyanoacrylate (Octyl 2-Cyanoacrylate 1 Tube) Confirm Administered Dose 1 applic .ROUTE .[employer]-ORVIBO ONE Stop: 11/26/20 10:59 Ondansetron HCl (Ondansetron 4 Mg/2 Ml Sdv) Confirm Administered Dose 4 mg .ROUTE .[employer] ONE Stop: 11/26/20 10:14 Propofol (Propofol 200 Mg/20 Ml Sdv) Confirm Administered Dose 200 mg .ROUTE .[employer] ONE Stop: 11/26/20 10:13 Rocuronium [place] (Rocuronium [place] 50 Mg/5 Ml Syringe) Confirm Administered Dose 50 mg .ROUTE .[employer] ONE Stop: 11/26/20 10:14
[2020-11-26] MEDS ORDERED: fentaNYL 250 MCG/5 ML SDV ONE (12:18)
[2020-11-26] MEDS ORDERED: Acetaminophen 1,000 MG in Premix Bag 1 BAG IV PRN (12:27)
[2020-11-26] MEDS ORDERED: fentaNYL 100 MCG/2 ML SDV IVPUSH PRN (12:27)
[2020-11-26] MEDS ORDERED: HYDROmorphone 1 MG/ML Syringe IVPUSH PRN (12:27)
--- NOTE | 2020-11-26 12:56 | PCM.OPNOTE ---
- General Post-Op/Procedure Note Date of Surgery/Procedure: 11/26/20 Operative Procedure(s): Laparoscopic cholecystectomy Findings: Gallbladder containing a large stone. No adhesions. No evidence of impaction. Pre Op Diagnosis: Symptomatic cholelithiasis Post-Op Diagnosis: same Anesthesia Technique: MAC Primary Surgeon: Betsy Pop Fluid Replacement, Intraop: 1,500 Output, Urine Amount: 225 EBL in mLs: 5 Condition: Good
--- NOTE | 2020-11-26 13:53 | OR ---
SURGEON: BETSY GARCÍA MD DATE OF PROCEDURE: 11/26/2020 PREOPERATIVE DIAGNOSIS: Symptomatic cholelithiasis. POSTOPERATIVE DIAGNOSIS: Symptomatic cholelithiasis. PROCEDURE PERFORMED: Laparoscopic cholecystectomy. PRIMARY SURGEON: Betsy García MD IGNITION EXPERT: assistant professor sculpture: Eliecer Wesley MD. ANESTHESIA: General endotracheal anesthesia. FLUID: 1500 mL crystalloid. ESTIMATED BLOOD LOSS: 5 mL. URINE OUTPUT: 225 mL. FINDINGS: Gallbladder containing large gallstone. No evidence of obstruction, no evidence of acute inflammation. COMPLICATIONS: None. INDICATIONS: The patient is a 40-year-old female who presents with symptomatic cholelithiasis. I explained the need for a laparoscopic, possible open cholecystectomy. I explained the laparoscopic and open procedures. I will attempt to do this laparoscopically, but convert to open should I be unable to perform it safely. We discussed the expected perioperative course as well as the risks including bleeding, infection, or damage to surrounding structures. She verbalized understanding and wishes to proceed. PROCEDURE IN DETAIL: The patient was brought into the OR and placed on the OR table in supine position. A time-out was completed verifying the patient's name, age, date of , allergies, and procedure to be performed. General endotracheal anesthesia was induced. The left arm was tucked at the patient's side and a Collado catheter placed. The abdomen was prepped and draped in usual standard fashion. I anesthetized the infraumbilical fold with 0.5% Marcaine plain. An 11-blade was used to make an incision along the infraumbilical fold. Cautery was used to dissect down to the level of subcutaneous fat. I encountered Chuyita fascia and incised this sharply with curved Taylor scissors. I then dissected down to the fascia. The fascia was elevated with Kochers and incised sharply with curved Taylor scissors. I grasped the posterior fascia and peritoneum. This was then opened sharply with curved Taylor scissors. Entry into the abdomen was palpated digitally. Stay sutures were placed on either side using 0 Vicryl sutures. A 12 mm Iris trocar was inserted into the abdomen and it was insufflated. A 5 mm 30-degree scope was inserted. No damage to surrounding structures was noted. The patient was placed into reverse Trendelenburg position and airplaned slightly to the left. 5 mm trocars were placed in the following locations under direct visualization; one in the epigastric area, one in the right flank, and one 2 fingerbreadths below the right subcostal margin in the midclavicular line. The dome of the gallbladder was grasped and elevated. There were no adhesions to the gallbladder itself. I identified the infundibulum. Using a combination of blunt dissection and hook cautery, I dissected around the proximal one-third of the gallbladder. I identified my cystic duct and artery. I cleared away all the surrounding tissue around these. I then dissected one-third of the way up my cystic plate. Once my critical view was achieved, a photograph was taken. I then doubly clipped and ligated my cystic duct and artery. One of the clips on the proximal half of the artery fell off, but the other clip which was in place stayed in place and there was no evidence of bleeding. Using hook cautery, I took down the remaining attachments of the gallbladder to the cystic plate. The gallbladder was then placed in an EndoCatch bag and secured outside of the 12 mm Iris trocar. I then turned my attention back to the liver bed. I closely inspected it. There was no evidence of any biliary leakage or bleeding. A photograph was taken. I irrigated my operative field with a small amount of normal saline. This was then suctioned out. The 5 mm trocars were removed under direct visualization and the abdomen allowed to desufflate. The 12 mm Iris trocar and EndoCatch bag were removed as well. The fascia at the infraumbilical port site was closed with interrupted 0 Vicryl sutures. The subcutaneous fat layer was closed with interrupted 3-0 Vicryl sutures. The skin was closed with a running 4-0 Monocryl stitch. The 5 mm trocar sites were closed with interrupted 4-0 Monocryl sutures. Dermabond and sterile dressings were applied. The patient tolerated the procedure well and was transferred to the PACU in stable condition. All counts were complete and correct at the end of the case. MARS / LAM /[id number]
--- NOTE | 2020-11-26 14:06 | PCM.POSTAN ---
POST ANESTHESIA ASSESSMENT - MENTAL STATUS Mental Status: Alert (no anesthetic problems), Oriented - VITAL SIGNS Vital Signs: Last Vital Signs Temp 97.5 F 11/26/20 13:45 Pulse 90 11/26/20 14:00 Resp 14 11/26/20 14:00 BP 134/87 11/26/20 14:00 Pulse Ox 97 11/26/20 14:00 - RESPIRATORY Respiratory Status: Respiratory Rate WNL, Airway Patent, O2 Saturation Stable - CARDIOVASCULAR CV Status: Pulse Rate WNL, Blood Pressure Stable - GASTROINTESTINAL GI Status: No Symptoms - POST OP HYDRATION Hydration Status: Adequate & Stable
--- NOTE | 2020-11-27 08:34 | PCM48HPAN ---
Post Anesthesia Note - EVALUATION WITHIN 48HRS OF ANESTHETIC Vital Signs in Normal Range: Yes Patient Participated in Evaluation: Yes Respiratory Function Stable: Yes Airway Patent: Yes Cardiovascular Function Stable: Yes Hydration Status Stable: Yes Pain Control Satisfactory: Yes Nausea and Vomiting Control Satisfactory: Yes Mental Status Recovered: Yes Vital Signs: Last Vital Signs Temp 97.5 F 11/26/20 13:45 Pulse 88 11/26/20 14:30 Resp 16 11/26/20 14:30 BP 128/84 11/26/20 14:30 Pulse Ox 100 11/26/20 14:30
== END 2020-11-26 15:05 | disposition home or self-care (01) ==
LOC: MW.SDS 10:16
PROVIDERS: ATTEND Surgery
DX: K80.10 Calculus of gallbladder with chronic cholecystitis without obstruction (principal); E11.9 Type 2 diabetes mellitus without complications; E66.9 Obesity, unspecified; Z79.899 Other long term (current) drug therapy; Z68.30 Body mass index [BMI] 30.0-30.9, adult
CPT/HCPCS: 81025; 82947; 88304; A9270-GY; J0690; J1885; J2250; J2405; J2704; J3010; J3490; J7120

== ENCOUNTER 2021-05-02 06:02 | Emergency (ER) | payer SELFPAY ==
[2021-05-02] MEDS ORDERED: Sodium Chloride 0.9% 10 ML Syringe FLUSH PRN (06:22)
[2021-05-02] MEDS ORDERED: Sodium Chloride 0.9% 2.5 ML Syringe FLUSH PRN (06:22)
[2021-05-02] MEDS ORDERED: Morphine 4 MG/ML Syringe IVPUSH ONE (06:22)
[2021-05-02] MEDS ORDERED: Morphine 2 MG/ML SYRINGE ONE (06:26)
[2021-05-02] MEDS ORDERED: Morphine 2 MG/ML SYRINGE IVPUSH ONE (06:27)
--- NOTE | 2021-05-02 06:30 | EDM.PDOC ---
<KarthikRyland - Last Filed: 05/02/21 06:24> ED HPI GENERAL MEDICAL PROBLEM - General Chief Complaint: Chest Pain Stated Complaint: CHEST PAIN AND SHORTNESS OF BREATH Time Seen by Provider: 05/02/21 06:16 - History of Present Illness INITIAL COMMENTS - FREE TEXT/NARRATIVE: Patient is a 40-year-old female with a past history of diabetes and hyperlipidemia who is presenting with left-sided chest pain. Patient was woken up at 2 AM this morning by sharp left-sided chest pain that radiates into the left shoulder. It worsens with deep breaths and is associated with shortness of breath. No nausea or vomiting no syncope or near syncope. No palpitations. No prior history of a similar episode currently 7 out of 10. Patient has had no cough or fever and no myalgias. Patient does note that she has had on and off headache for the last 2 days is an intermittent sharp primarily right frontal headache that seems to come out of nowhere and then fade away after about 15 minutes. It has happened multiple times but is not currently present. Patient denies tobacco use she denies recent platelets or long car rides. Left Chest Pain Score (Numeric/FACES): 7 - Related Data Allergies Allergy/AdvReac Type Severity Reaction Status Date / Time No Known Allergies Allergy Verified 05/02/21 06:10 Home Meds: Home Meds Acetaminophen/oxyCODONE [Percocet 325-5 MG] 1 tab PO ASDIRECTED PRN 11/20/20 [History] Multivit-Minerals/Folic Acid [Multivitamin Gummies] 1 tab.chew CHEW DAILY 11/20/20 [History] Scopolamine [Transderm-Scop] 1 patch TRDERM ONETIME 11/20/20 [History] metFORMIN HCl [Metformin HCl ER] 500 mg PO BID 11/20/20 [History] Furosemide [Lasix] 20 mg PO DAILY 90 Days #90 tab 05/02/21 [Rx] Past Medical History HEENT History: Reports: None Cardiovascular History: Reports: None Other Cardiovascular History: elevated BP following vaginal deliver in July Respiratory History: Reports: None Gastrointestinal History: Reports: None Genitourinary History: Reports: None [employer] History: Reports: Musculoskeletal History: Reports: None Neurological History: Reports: None Psychiatric History: Reports: None Endocrine/Metabolic History: Reports: Diabetes, Gestational, Diabetes, Type II Hematologic History: Reports: None Immunologic History: Reports: None Oncologic (Cancer) History: Reports: None Dermatologic History: Reports: None - Infectious Disease History Infectious Disease History: Reports: None - Past Surgical History Head Surgeries/Procedures: Reports: None HEENT Surgical History: Reports: None Cardiovascular Surgical History: Reports: None Respiratory Surgical History: Reports: None GI Surgical History: Reports: None Female Surgical History: Reports: None Endocrine Surgical History: Reports: None Neurological Surgical History: Reports: None Musculoskeletal Surgical History: Reports: None Oncologic Surgical History: Reports: None Dermatological Surgical History: Reports: None Social & Family History - Family History HEENT: Reports: None Cardiac: Reports: Hypertension Respiratory: Reports: None GI: Reports: None : Reports: None OBGYN: Reports: Musculoskeletal: Reports: None Neurological: Reports: None Psychiatric: Reports: None Endocrine/Metabolic: Reports: Diabetes, type II Hematologic: Reports: None Immunologic: Reports: None Dermatologic: Reports: None Oncologic: Reports: None - Tobacco Use Tobacco Use Status *Q: Never Tobacco User - Caffeine Use Caffeine Use: Reports: None - Recreational Drug Use Recreational Drug Use: No ED ROS GENERAL - Review of Systems Review Of Systems: See Below Free Text/Narrative/Comment: General: No fever. Skin: No rash. Eyes: No vision problems. ENT: No sore throat. Neck: No neck stiffness. Respiratory: Per HPI Cardiac: Per HPI Gastrointestinal: No nausea, vomiting or abdominal pain. Urinary: No dysuria. Musculoskeletal: No myalgias/arthralgias. Neurologic: Per HPI ED EXAM, GENERAL - Physical Exam Exam: See Below Free Text/Narrative:: General Appearance: Appears uncomfortable and mildly tachypneic but not acutely toxic Skin: No rash HEENT: Normocephalic/atraumatic, sclera anicteric, mucous membranes moist Neck: Normal range of motion Chest and Lungs: Bilateral breath sounds, clear to auscultation Cardiovascular: Tachycardic rate regular rhythm intact distal perfusion Abdomen: Soft, non-tender Back: Normal Musculoskeletal: No edema or tenderness Neurologic: Awake, alert, no obvious deficits, moving all extremities Psychiatric: Appropriate, cooperative #1 Interpretation EKG Date: 05/02/21 Time: 06:15 EKG Interpretation Comments: Sinus tachycardia with a rate of 113 slightly biphasic T waves laterally but no acute ischemia QTC is borderline prolonged at 498 Departure - Departure Disposition: Home, Self-Care 01 Clinical Impression: Chest pain, Dyspnea, Congestive heart failure - Discharge Information Prescriptions: Furosemide [Lasix] 20 mg PO DAILY 90 Days #90 tab Instructions: Heart Failure, Self Care, [id number], Hypokalemia, Nonspecific Chest Pain, Adult, [id number], Heart Failure Eating Plan Referrals: PCP,None [Primary Care Provider] - Forms: ED Department Discharge Additional Instructions: You have been given hypokalemia instructions. Your potassium value is normal but the medicines you are going to start will reduce your potassium and therefore you need to know how to maintain the potassium. If this does not work adequately your doctor will prescribe potassium supplement pills in the future. Make appointment for cardiology clinic. If you get worse instead of better on the medicines return to the emergency department. Restrict your salt and that means read labels and make smart choices. Eat a high potassium diet. The latter is because the water pill will deplete your body's potassium. [facility] - cardiology [address] [place] [address] If you do not have a doctor make an appointment primary care clinics we have someone to follow-up for your diabetes your heart failure and any other problems have developed. [facility] - Primary Care [address] [place] [address] [id number] [address] [id number] The following information is given to patients seen in the emergency department who are being discharged to home. This information is to outline your options for follow-up care. We provide all patients seen in our emergency department with a follow-up referral. The need for follow-up, as well as the timing and circumstances, are variable depending upon the specifics of your emergency department visit. If you don't have a primary care physician on staff, we will provide you with a referral. We always advise you to contact your personal physician following an emergency department visit to inform them of the circumstance of the visit and for follow-up with them and/or the need for any referrals to a consulting specialist. The emergency department will also refer you to a specialist when appropriate. This referral assures that you have the opportunity for follow-up care with a specialist. All of these measure are taken in an effort to provide you with optimal care, which includes your follow-up. Under all circumstances we always encourage you to contact your private physician who remains a resource for coordinating your care. When calling for follow-up care, please make the office aware that this follow-up is from your recent emergency room visit. If for any reason you are refused follow-up, please contact the [facility] Emergency Department at and asked to speak to the emergency department charge nurse. - Assessment/Plan Assessment:: 40-year-old female presenting with pleuritic left-sided chest pain shortness of breath and tachycardia. I do have a significant concern for PE and I think my suspicion is high enough patient should undergo CT pulmonary angiography. Pneumonia considered is felt less likely as there is no history of cough or fever but this is also possible. Pneumothorax is a consideration as well I think this is less likely but initial chest x-ray ordered to exclude this. Pericarditis is a consideration ACS is a consideration but also felt less likely. EKG is without signs of acute ischemia troponin is pending. Morphine ordered for symptom control and will reassess. Regarding the headache the patient has had a headache on and off for the last 2 days she has no headache at this time her neurologic exam is normal. But given the fact that she does not typically get headaches CT scan of the brain is been ordered as well. Results of testing pending at this time patient signed out to Dr. Todd pending these results and final disposition. <Ronnie Todd - Last Filed: 05/02/21 10:10> Course - Vital Signs Last Recorded V/S: Last Vital Signs Temp 35.8 C L 05/02/21 08:20 Pulse 86 05/02/21 09:43 Resp 15 05/02/21 09:43 BP 135/102 H 05/02/21 09:43 Pulse Ox 98 05/02/21 09:43 - Orders/Labs/Meds Orders: Active Orders 24 hr Category Date Time Status Sodium Chloride 0.9% [Saline Flush] Med 05/02/21 06:22 Active 10 ml FLUSH ASDIRECTED PRN Sodium Chloride 0.9% [Saline Flush] Med 05/02/21 06:22 Active 2.5 ml FLUSH ASDIRECTED PRN Saline Lock Insert [OM.PC] Stat Oth 05/02/21 06:22 Ordered Medication Orders Sodium Chloride (Sodium Chloride 0.9% 10 Ml Syringe) 10 ml FLUSH ASDIRECTED PRN PRN Reason: Keep Vein Open Last Admin: 05/02/21 06:29 Dose: 10 ml Documented by: SALLY Sodium Chloride (Sodium Chloride 0.9% 2.5 Ml Syringe) 2.5 ml FLUSH ASDIRECTED PRN PRN Reason: Keep Vein Open Last Admin: 05/02/21 06:29 Dose: 2.5 ml Documented by: SALLY Labs: Laboratory Tests 05/02/21 05/02/21 05/02/21 Range/Units 06:10 06:10 06:10 WBC 5.91 (4.0-11.0) K/uL RBC 4.38 (4.30-5.90) M/uL Hgb 13.2 (12.0-16.0) g/dL Hct 40.0 (36.0-46.0) % MCV 91.3 (80.0-98.0) fL MCH 30.1 (27.0-32.0) pg MCHC 33.0 (31.0-37.0) g/dL RDW Std Deviation 47.2 (28.0-62.0) fl RDW Coeff of Katie 14 (11.0-15.0) % Plt Count 231 (150-400) K/uL MPV 10.90 (7.40-12.00) fL Neut % (Auto) 44.5 L (48.0-80.0) % Lymph % (Auto) 49.7 H (16.0-40.0) % [place] % (Auto) 4.7 (0.0-15.0) % Eos % (Auto) 0.8 (0.0-7.0) % Baso % (Auto) 0.3 (0.0-1.5) % Neut # (Auto) 2.6 (1.4-5.7) K/uL Lymph # (Auto) 2.9 H (0.6-2.4) K/uL [place] # (Auto) 0.3 (0.0-0.8) K/uL Eos # (Auto) 0.1 (0.0-0.7) K/uL Baso # (Auto) 0.0 (0.0-0.1) K/uL Nucleated RBC % 0.0 /100WBC Nucleated RBCs # 0 K/uL Sodium 146 H (136-145) mmol/L Potassium 3.8 (3.5-5.1) mmol/L Chloride 107 (98-107) mmol/L Carbon Dioxide 24.3 (21.0-32.0) mmol/L BUN 6 L (7.0-18.0) mg/dL Creatinine 1.0 (0.6-1.0) mg/dL Est Cr Clr Drug Dosing 60.62 mL/min Estimated GFR (MDRD) > 60.0 ml/min Glucose 121 H (74-106) mg/dL Calcium 9.0 (8.5-10.1) mg/dL Total Bilirubin 0.6 (0.2-1.0) mg/dL AST 10 L (15-37) IU/L ALT 31 (14-63) IU/L Alkaline Phosphatase 49 (46-116) U/L Troponin I < 0.050 (0.000-0.056) ng/mL B-Natriuretic Peptide 236 H (<100) PG/ML Total Protein 7.5 (6.4-8.2) g/dL Albumin 4.0 (3.4-5.0) g/dL Globulin 3.5 (2.6-4.0) g/dL Albumin/Globulin Ratio 1.1 (0.9-1.6) Lipase 220 (73-393) U/L Influenza Type A RNA (NEGATIVE) Influenza Type B RNA (NEGATIVE) SARS-CoV-2 RNA (PORSHA) (NEGATIVE) 05/02/21 05/02/21 Range/Units 07:35 09:11 WBC (4.0-11.0) K/uL RBC (4.30-5.90) M/uL Hgb (12.0-16.0) g/dL Hct (36.0-46.0) % MCV (80.0-98.0) fL MCH (27.0-32.0) pg MCHC (31.0-37.0) g/dL RDW Std Deviation (28.0-62.0) fl RDW Coeff of Katie (11.0-15.0) % Plt Count (150-400) K/uL MPV (7.40-12.00) fL Neut % (Auto) (48.0-80.0) % Lymph % (Auto) (16.0-40.0) % [place] % (Auto) (0.0-15.0) % Eos % (Auto) (0.0-7.0) % Baso % (Auto) (0.0-1.5) % Neut # (Auto) (1.4-5.7) K/uL Lymph # (Auto) (0.6-2.4) K/uL [place] # (Auto) (0.0-0.8) K/uL Eos # (Auto) (0.0-0.7) K/uL Baso # (Auto) (0.0-0.1) K/uL Nucleated RBC % /100WBC Nucleated RBCs # K/uL Sodium (136-145) mmol/L Potassium (3.5-5.1) mmol/L Chloride (98-107) mmol/L Carbon Dioxide (21.0-32.0) mmol/L BUN (7.0-18.0) mg/dL Creatinine (0.6-1.0) mg/dL Est Cr Clr Drug Dosing mL/min Estimated GFR (MDRD) ml/min Glucose (74-106) mg/dL Calcium (8.5-10.1) mg/dL Total Bilirubin (0.2-1.0) mg/dL AST (15-37) IU/L ALT (14-63) IU/L Alkaline Phosphatase (46-116) U/L Troponin I < 0.050 (0.000-0.056) ng/mL B-Natriuretic Peptide (<100) PG/ML Total Protein (6.4-8.2) g/dL Albumin (3.4-5.0) g/dL Globulin (2.6-4.0) g/dL Albumin/Globulin Ratio (0.9-1.6) Lipase (73-393) U/L Influenza Type A RNA NEGATIVE (NEGATIVE) Influenza Type B RNA NEGATIVE (NEGATIVE) SARS-CoV-2 RNA (PORSHA) NEGATIVE (NEGATIVE) Meds: Medications Generic Name Dose Route Start Last Admin Trade Name Freq PRN Reason Stop Dose Admin Sodium Chloride 10 ml 05/02/21 06:22 05/02/21 06:29 Sodium Chloride 0.9% 10 Ml Syringe FLUSH 10 ml ASDIRECTED PRN Administration Keep Vein Open Sodium Chloride 2.5 ml 05/02/21 06:22 05/02/21 06:29 Sodium Chloride 0.9% 2.5 Ml Syringe FLUSH 2.5 ml ASDIRECTED PRN Administration Keep Vein Open Discontinued Medications Generic Name Dose Route Start Last Admin Trade Name Freq PRN Reason Stop Dose Admin Furosemide 40 mg 05/02/21 07:14 05/02/21 07:30 Furosemide 40 Mg/4 Ml Vial IVPUSH 05/02/21 07:15 40 mg NOW ONE Administration Morphine Sulfate 4 mg 05/02/21 06:22 05/02/21 06:27 Morphine 4 Mg/Ml Syringe IVPUSH 05/02/21 06:23 Not Given ONETIME ONE Morphine Sulfate 4 mg 05/02/21 06:27 05/02/21 06:30 Morphine 2 Mg/Ml Syringe IVPUSH 05/02/21 06:28 4 mg ONETIME ONE Administration Morphine Sulfate Confirm 05/02/21 06:26 05/02/21 06:29 Morphine 2 Mg/Ml Syringe Administered 05/02/21 06:27 Not Given Dose 4 mg .ROUTE .STK-MED ONE - Re-Assessments/Exams Free Text/Narrative Re-Assessment/Exam: 05/02/21 07:15 I assumed care of the patient at 7:00 when my partner shift ended. The patient is slightly tachypneic and has slight respiratory distress even though her saturation is good. X-ray is consistent with congestive heart failure. I will add a BNP and COVID-19 test to the lab and since her diastolic blood pressure is 99 I will give her a dose of intravenous furosemide. She does not subjectively feel better at this point. 7:55 AM radiologist reads heart size and vasculature is normal with a right lower lobe infiltrate. I feel the heart size is the least generous with well-expanded film and no prior for comparison. Will review CT and BMP. 05/02/21 07:55 Free Text/Narrative Re-Assessment/Exam: 05/02/21 08:33 CT reading agrees with my x-ray reading. She is in congestive heart failure. BNP is also slightly elevated. Patient has not had a work-up for heart problems in over 5 years and last one was done elsewhere. I spent some time talking about salt restriction, high potassium diet, and use of diuretics as well as explaining congestive heart failure. Patient agrees to go to the cardiology clinic for follow-up. Free Text/Narrative Re-Assessment/Exam: 05/02/21 10:08 The patient tolerated activity in the emergency department and feels better. She will be discharged. Departure - Departure Time of Disposition: 10:10 Condition: Good Sepsis Event Note (ED) - Focused Exam Vital Signs: Vital Signs Temp Pulse Resp BP Pulse Ox 05/02/21 09:43 86 15 135/102 H 98 05/02/21 09:11 87 20 132/95 H 97 05/02/21 08:20 35.8 C L 88 16 138/93 H 100 05/02/21 07:30 103 H 20 139/97 H 94 L 05/02/21 06:33 109 H 20 144/99 H 100 05/02/21 06:10 36.5 C 112 H 19 148/107 H 97
[2021-05-02] MEDS ORDERED: Furosemide 40 MG/4 ML VIAL IVPUSH ONE (07:14)
--- NOTE | 2021-05-02 07:15 | CR ---
INDICATION: Left upper chest pain COMPARISON: none TECHNIQUE: Portable chest performed at 6:43 a.m. FINDINGS: There is a subtle infiltrate and faint air bronchograms within the right lower lobe. There is no evidence of pneumothorax. The heart, mediastinum and pulmonary vessels are of normal size. There is no evidence of pleural fluid. IMPRESSION: Subtle infiltrate within the right lower lobe. Dictated by Shad Cisneros MD @ 05/02/2021 7:14:18 AM (Electronically Signed)
[2021-05-02 07:22] LABS: BLOOD UREA NITROGEN,BUN 6 mg/dL (7.0-18.0); CARBON DIOXIDE,CO2 24.3 mmol/L (21.0-32.0); CHLORIDE,CL 107 mmol/L (98-107); GLUCOSE RANDOM 121 mg/dL (74-106); LIPASE 220 U/L (73-393); POTASSIUM,K 3.8 mmol/L (3.5-5.1); SODIUM,NA 146 mmol/L (136-145)
--- NOTE | 2021-05-02 07:56 | CT ---
Indication: Headache Technique: CT of the head without contrast. Coronal and sagittal reformats. Bone and soft tissue windows. Comparison: No prior studies available for comparison at this institution. Findings: No acute intracranial hemorrhage or extra-axial collection. No evidence of acute cortical infarction. No mass effect or midline shift. Normal cerebral volume. The ventricles are normal in size, shape and contour. There is normal martinez and white matter differentiation. The orbital contents are normal. No calvarial fractures. No lytic or sclerotic osseous lesions within the calvarium or skull base. Scalp and other imaged soft tissue structures are normal. Mastoid air cells are clear. Paranasal sinuses are well aerated. Impression: No acute intracranial abnormality. Please note that all CT scans at this facility use dose modulation, iterative reconstruction, and/or weight-based dosing when appropriate to reduce radiation dose to as low as reasonably achievable. Dictated by Min Eagle MD @ 05/02/2021 7:54:07 AM (Electronically Signed)
[2021-05-02 08:16] LABS: CORONAVIRUS COVID-19 NAA NEGATIVE (NEGATIVE); INFLUENZA A NAA NEGATIVE (NEGATIVE); INFLUENZA B NAA NEGATIVE (NEGATIVE)
--- NOTE | 2021-05-02 08:16 | CT ---
INDICATION: Chest pain, shortness breath. Tachycardia. COMPARISON: none TECHNIQUE: CT volumetric acquisition was performed of the thorax during intravenous infusion of 87 cc of Isovue 370 FINDINGS: The CT images are of acceptable quality and demonstrate normal uniform vascular enhancement within the pulmonary arteries. There are no suspicious filling defects which would indicate pulmonary thromboemboli. There is mild cardiomegaly. There is no evidence pericardial fluid. There is trace amount of pleural fluid noted bilaterally right greater than left. There is no evidence of lymphadenopathy within the central mediastinum or within either axilla. On lung window settings, there is no evidence of pneumothorax. The pulmonary vessels show congestion and there is slight thickening of the interlobular septi particularly within the dependent lung zones. The pulmonary parenchyma has uniform density and there is no evidence of suspicious nodules, masses or infiltrates. IMPRESSION: No evidence of pulmonary thromboembolism. Cardiac enlargement and vascular congestion suggesting possible early interstitial edema. Please note that all CT scans at this facility use dose modulation, iterative reconstruction, and/or weight-based dosing when appropriate to reduce radiation dose to as low as reasonably achievable. Dictated by Shad Cisneros MD @ 05/02/2021 8:16:22 AM (Electronically Signed)
[2021-05-02] MEDS ORDERED: Iopamidol 755 MG/ML 500 ML Multipack Bottle IVPUSH ONE (11:06)
== END 2021-05-02 10:22 | disposition home or self-care (01) ==
LOC: MW.ED 06:02
DX: I50.9 Heart failure, unspecified (principal); R00.0 Tachycardia, unspecified; Z20.822 Contact with and (suspected) exposure to COVID-19
CPT/HCPCS: 0240U; 36415; 70450; 71045; 71275; 80053; 83690; 83880; 84484; 85025; 93005; 96374; 96375; 99285; J1940; J2270; Q9967

== ENCOUNTER 2024-03-16 07:47 | Day surgery (SDC) | payer BC ==
[~2024-03-16 07:47] MED LIST changes: -Glycopyrrolate 0.2 MG/ML SDV ONE; -Ketorolac 30 MG/ML SDV ONE; -Lactated Ringers 1,000 ML IV SCH; -Lidocaine 2% 5 ML SDV ONE; -Midazolam 1 MG/ML 2 ML SDV ONE; -Ondansetron 4 MG/2 ML SDV ONE; -Propofol 200 MG/20 ML SDV ONE; -Rocuronium Bromide 50 MG/5 ML Syringe ONE; -Sodium Chloride 0.9% 10 ML SDV IV PRN; +Sodium Chloride 0.9% 20 ML SDV IV PRN; -ceFAZolin 2 GM in Premix Bag 1 BAG IV ONE; -fentaNYL 250 MCG/5 ML SDV ONE
[2024-03-16] MEDS: Lactated Ringers 1,000 ML IV SCH (08:20)
[2024-03-16] MEDS ORDERED: Lidocaine 2% 5 ML SDV ONE (09:25)
[2024-03-16] MEDS ORDERED: propofoL 50 ML ONE (09:25)
== END 2024-03-16 10:45 | disposition home or self-care (01) ==
LOC: MW.SDS 07:47
PROVIDERS: ATTEND Surgery
DX: K29.50 Unspecified chronic gastritis without bleeding (principal); B96.81 Helicobacter pylori [H. pylori] as the cause of diseases classified elsewhere; K44.9 Diaphragmatic hernia without obstruction or gangrene; K29.80 Duodenitis without bleeding; E11.9 Type 2 diabetes mellitus without complications; I50.20 Unspecified systolic (congestive) heart failure; E78.00 Pure hypercholesterolemia, unspecified; I42.9 Cardiomyopathy, unspecified; Z79.899 Other long term (current) drug therapy
CPT/HCPCS: 43239; 45380; 81025; J2704; J7120; 00813; J3490

== ENCOUNTER 2024-06-20 08:54 | Emergency (ER) | payer BC ==
[2024-06-20 09:16] LABS: BASOPHILS ABSOLUTE AUTO 0.01 K/uL (0.00-0.20); BASOPHILS PERCENT AUTO 0.2 % (0.0-1.0); EOSINOPHILS ABSOLUTE AUTO 0.03 K/uL (0.00-0.45); EOSINOPHILS PERCENT AUTO 0.6 % (0.0-6.0); HEMATOCRIT 41.7 % (37.0-47.0); IMMATURE GRAN ABSOLUTE AUTO 0.01 K/uL (0.00-0.05); IMMATURE GRAN PERCENT AUTO 0.2 % (0.0-0.4); LYMPHOCYTES ABSOLUTE AUTO 1.56 K/uL (1.00-4.80); LYMPHOCYTES PERCENT AUTO 32.7 % (24.0-44.0); MEAN CORPUSCULAR HGB CONC 33.6 g/dL (32.0-36.0); MEAN CORPUSCULAR VOLUME 89.5 fL (83.0-99.0); MEAN PLATELET VOLUME 9.8 fL (9.4-12.3); MONOCYTES ABSOLUTE AUTO 0.27 K/uL (0.00-0.80); MONOCYTES PERCENT AUTO 5.7 % (0.0-8.0); NEUTROPHILS ABSOLUTE AUTO 2.89 K/uL (1.80-7.70); NEUTROPHILS PERCENT AUTO 60.6 % (41.0-71.0); PLATELET COUNT,PLT 188 K/uL (150-400); RED BLOOD CELL COUNT 4.66 M/uL (4.10-5.30); WHITE BLOOD CELL COUNT,WBC 4.77 K/uL (3.9-11.3)
[2024-06-20 09:59] LABS: A/G RATIO 1.2 (0.9-1.6); ALANINE AMINOTRANSFERASE,ALT 33 IU/L (14-63); ALBUMIN 4.2 g/dL (3.4-5.0); ALKALINE PHOSPHATASE 63 U/L (46-116); ASPARTATE AMNIOTRANSFERASE,AST 18 IU/L (15-37); BILIRUBIN TOTAL 0.8 mg/dL (0.2-1.0); BLOOD UREA NITROGEN,BUN 19 mg/dL (7.0-18.0); CARBON DIOXIDE,CO2 24.6 mmol/L (21.0-32.0); CHLORIDE,CL 105 mmol/L (98-107); CREATININE 1.1 mg/dL (0.6-1.0); EST CRCL DRUG DOSING (CG) 53.43 mL/min; GLUCOSE RANDOM 246 mg/dL (74-106); PROTEIN TOTAL,TP 7.7 g/dL (6.4-8.2); SODIUM,NA 140 mmol/L (136-145)
[2024-06-20 10:00] LABS: ESTIMATED GFR 63 mL/min (>60)
== END 2024-06-20 10:44 | disposition home or self-care (01) ==
LOC: MW.ED 08:54
DX: R07.9 Chest pain, unspecified (principal); R06.02 Shortness of breath; E11.65 Type 2 diabetes mellitus with hyperglycemia; I50.9 Heart failure, unspecified; R10.9 Unspecified abdominal pain; Z75.8 Other problems related to medical facilities and other health care; Z86.16 Personal history of COVID-19; Z90.49 Acquired absence of other specified parts of digestive tract; Z79.84 Long term (current) use of oral hypoglycemic drugs; Z79.899 Other long term (current) drug therapy
CPT/HCPCS: 36415; 71046; 71046-26; 80053; 82947; 83880; 84484; 85025; 85379; 93005; 99285

== ENCOUNTER 2024-07-13 07:22 | Day surgery (SDC) | payer BC ==
[2024-07-13] MEDS: Lactated Ringers 1,000 ML IV SCH (07:45)
[2024-07-13] MEDS ORDERED: Lidocaine 2% 5 ML SDV ONE (07:46)
[2024-07-13] MEDS ORDERED: Propofol 200 MG/20 ML SDV ONE (07:46)
== END 2024-07-13 09:00 | disposition home or self-care (01) ==
LOC: MW.SDS 07:22
PROVIDERS: ATTEND Surgery
DX: K29.50 Unspecified chronic gastritis without bleeding (principal); E11.9 Type 2 diabetes mellitus without complications; I50.20 Unspecified systolic (congestive) heart failure; I42.9 Cardiomyopathy, unspecified; E78.5 Hyperlipidemia, unspecified; Z87.891 Personal history of nicotine dependence; Z79.899 Other long term (current) drug therapy
CPT/HCPCS: 43239; 81025; J2704; J7120; 00731; J3490